=== PATIENT | female | born 1970 | race Caucasian/White ===

== ENCOUNTER 2018-05-17 17:13 | Emergency (ER) | payer OTHER ==
--- NOTE | 2018-05-17 17:30 | ED.PDOC ---
History of Present Illness - General Chief Complaint: ENT Problem Time Seen by Provider: 05/17/18 17:27 Source: patient, RN notes reviewed, Vital Signs reviewed Exam Limitations: no limitations Additional Information: 47 Y O HERE FOR EVALUATION OF SORE THROAT AND THROAT PAIN KERRY ON SWOLLOING SHE GETS STREP THORAT TWICE A YEAR USUALL TREATED WITH BACTRIM SHE IS ALLERGIC TO PCN - History of Present Illness Timing/Duration: 1 week Severity: moderate Improving Factors: nothing Worsening Factors: eating Associated Symptoms: cough Allergies/Adverse Reactions: Allergies Morphine Allergy (Verified 05/17/18 17:25) Penicillins Allergy (Verified 05/17/18 17:25) Home Medications: Ambulatory Orders Sulfa/Trimeth 800/160 (Ds) Tab [Bactrim DS Tab] 1 ea PO Q12HR #20 tab 05/17/18 Review of Systems - Review of Systems Constitutional: States: no symptoms reported EENTM: States: throat pain Respiratory: States: no symptoms reported Cardiology: States: no symptoms reported Gastrointestinal/Abdominal: States: no symptoms reported Genitourinary: States: no symptoms reported Musculoskeletal: States: no symptoms reported Skin: States: no symptoms reported Neurological: States: no symptoms reported Endocrine: States: no symptoms reported Hematologic/Lymphatic: States: no symptoms reported Family Medical History - Family History Mother Family History: No Known Physical Exam - Physical Exam General Appearance: Alert, Comfortable Eye Exam: bilateral normal Ears, Nose, Throat: hearing grossly normal, normal ENT inspection, pharyngeal erythema Neck: non-tender, full range of motion, supple, normal inspection Respiratory: chest non-tender, lungs clear, normal breath sounds, no respiratory distress Cardiovascular/Chest: normal peripheral pulses, regular rate, rhythm, no edema, no gallop, no JVD Back Exam: normal inspection, no CVA tenderness, no vertebral tenderness Extremity: normal range of motion, non-tender, normal inspection 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 Copy, Patient Portal Self Enrollment Instructions: DI for Ear Pain-Adult Diet: regular diet Prescriptions: Sulfa/Trimeth 800/160 (Ds) Tab [Bactrim DS Tab] 1 ea PO Q12HR #20 tab Home Medications: Ambulatory Orders Sulfa/Trimeth 800/160 (Ds) Tab [Bactrim DS Tab] 1 ea PO Q12HR #20 tab 05/17/18
[2018-05-17] MEDS ORDERED: fentaNYL CITRATE INJ 50 MCG/ML AMP IV ONE (17:31)
[2018-05-17] MEDS ORDERED: diazePAM 5 MG TAB PO ONE (17:33)
[2018-05-17] MEDS ORDERED: ORPHENADRINE CITRATE 30 MG/ML AMP IV ONE (17:33)
[2018-05-17 17:34] VITALS: TEMP 97.7; O2SAT 97
[2018-05-17 18:19] VITALS: BP 137/84
== END 2018-05-17 18:12 | disposition home or self-care (01) ==
LOC: ER 17:13
DX: J02.9 Acute pharyngitis, unspecified (principal); Z88.5 Allergy status to narcotic agent; Z88.0 Allergy status to penicillin

== ENCOUNTER 2018-05-20 07:03 | Emergency (ER) | payer OTHER ==
[2018-05-20 07:23] VITALS: TEMP 98.4
[2018-05-20] MEDS ORDERED: VANCOMYCIN HCL INJ 1,000 MG in SODIUM CHLORIDE 0.9% 250ML 250 ML IVPB ONE (07:24)
[2018-05-20] MEDS ORDERED: HYDROmorphone HCL INJ 2 MG/ML VIAL IV ONE (07:24)
[2018-05-20] MEDS ORDERED: ONDANSETRON INJ 4 MG/2 ML VIAL IV ONE (07:28)
--- NOTE | 2018-05-20 07:29 | ED.PDOC ---
History of Present Illness - General Chief Complaint: ENT Problem Time Seen by Provider: 05/20/18 07:22 Source: patient Exam Limitations: no limitations - History of Present Illness Initial Comments: patient comes in today with 4 day history of worsening sore throat and loss of voice. Patient states 4 days ago she was seen and given Bactrim for sore throat although strep swab at that time was negative. Since then it has progressively worsened to severe pain and inability to take anything by mouth including her chronic psychiatric medications or pain medications. Patient states she's been crushing up her antibiotics and taking it with his little fluid as possible as even drinking her saliva is causing excruciating pain. Patient states the last urination was a small amount late last night. Patient had some fever up to 99, no chills, but some malaise. Patient states she just feels horrible and has never had a throat infection this bad. 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 Patient otherwise is fairly healthy. 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 Patient also takes medication for bipolar disease and post rank stress disorder. Patient denies any tobacco, alcohol, or drug use. She has an allergy to penicillin and morphine but states other derivatives of morphine she's always been fine with including dialyzed and hydrocodone. Patient is able to communicate minimally with her voice being very muffled but is sitting up straight, not drooling, and no respiratory distress. Timing/Duration: other - 4 days Severity: severe EENT Location: throat Prearrival Treatment: prescription meds - bactrim and OTC Tylenol not helping Improving Factors: nothing Worsening Factors: other - unable to eat or drink because of pain, last urination yesterday Associated Symptoms: facial pain/swelling, fever Allergies/Adverse Reactions: Allergies Morphine Allergy (Verified 05/17/18 17:25) Penicillins Allergy (Verified 05/17/18 17:25) Home Medications: Ambulatory Orders Sulfa/Trimeth 800/160 (Ds) Tab [Bactrim DS Tab] 1 ea PO Q12HR #20 tab 05/17/18 Review of Systems - Review of Systems Constitutional: States: fever, malaise EENTM: States: throat pain, throat swelling Respiratory: States: no symptoms reported. Denies: cough, short of breath, wheezing Cardiology: States: no symptoms reported. Denies: chest pain, edema, palpitations Gastrointestinal/Abdominal: States: no symptoms reported. Denies: abdominal pain, diarrhea, nausea, vomiting Genitourinary: States: no symptoms reported Musculoskeletal: States: no symptoms reported Skin: States: no symptoms reported Neurological: States: no symptoms reported Past Medical History (General) - Patient Medical History Hx Seizures: No Hx Stroke: No Hx Congestive Heart Failure: No Hx Diabetes: No Hx Gastroesophageal Reflux: Yes Hx MRSA: Yes Hx Other PMH: Yes - Bipolar Disorder and Chronic back pain MRSA Source:: skin abscesses Surgical History: other - Hyst and Bladder suspension - Vaccination History Hx Tetanus, Diphtheria Vaccination: Yes Hx Influenza Vaccination: No Hx Pneumococcal Vaccination: No Immunizations Up to Date: No - Social History Hx Tobacco Use: No Hx Chewing Tobacco Use: No Hx Alcohol Use: No Hx Substance Use: No Hx Substance Use Treatment: No Hx Depression: No Feels Threatened In Home Enviroment: No Feels Threatened In a Relationship: No Hx Physical Abuse: No Hx Emotional Abuse: No - Female History Patient is a Female of Child Bearing Age (10 -59 yrs old): Yes Patient : Yes Family Medical History - Family History Mother Family History: No Known Physical Exam - Physical Exam General Appearance: Alert, Ill Appearing Eye Exam: bilateral normal Ear Exam: bilateral ear: auricle normal, canal normal, TM normal Nasal Exam: normal inspection Throat Exam: other - L [place] tonsil with erythema, swelling, and central white purulent lesion, no encroachment of the airway but some mild shifting of the uvula, dry mucous membranes Neck: full range of motion, supple, lymphadenopathy (R), other - TTP on the R anterior cervical lymphnodes with visable swelling of the soft tissue on the right, FROM of the neck is seen Cardiovascular/Respiratory: regular rate, rhythm, no M/R/G, normal peripheral pulses, no JVD, normal breath sounds, no respiratory distress Abdominal Exam: non-tender Neurologic: alert, oriented x 3 Progress - Progress Progress: patient is feeling better after IV fluid and IV pain medication. She is able to breathe in her respiratory status remained stable. We did talk to her about transfer as we do not have ENT surgeon available here for consultation although it is likely that IV antibiotics will help. Patient understands this and agrees to transfer. We contact regional transfer and she'll be transferred to [place] for direct admission under the care of the hospitalist with ENT consultation. 05/20/18 08:43 - Results/Orders Results/Orders: 05/20/18 07:24 Vancomycin HCl Inj 1,000 mg Sodium Chloride 0.9% 250Ml [NS 250ml] 250 ml IVPB ONCE Laboratory Results WBC 13.0 K/mm3 (4.8-10.8) H 05/20/18 07:20 RBC 4.67 M/mm3 (4.20-5.40) 05/20/18 07:20 Hgb 14.0 gm/dL (12.0-16.0) 05/20/18 07:20 Hct 41.6 % (36.0-47.0) 05/20/18 07:20 MCV 89.1 fl (81.0-99.0) 05/20/18 07:20 MCH 29.9 pg (27.0-31.0) 05/20/18 07:20 MCHC 33.6 g/dL (33.0-37.0) 05/20/18 07:20 RDW 13.5 % (11.5-14.5) 05/20/18 07:20 Plt Count 271 K/mm3 (130-400) 05/20/18 07:20 MPV 8.6 fl (7.40-10.4) 05/20/18 07:20 Absolute Neuts (auto) 10.50 K/uL (1.8-6.8) H 05/20/18 07:20 Absolute Lymphs (auto) 1.40 K/uL (1.0-3.4) 05/20/18 07:20 Absolute Monos (auto) 0.90 K/uL (0.2-0.8) H 05/20/18 07:20 Absolute Eos (auto) 0.10 K/uL (0.0-0.4) 05/20/18 07:20 Absolute Basos (auto) 0.10 K/uL (0.0-0.1) 05/20/18 07:20 Neutrophils % 80.9 % (42.0-78.0) H 05/20/18 07:20 Lymphocytes % 10.8 % (20.0-50.0) L 05/20/18 07:20 Monocytes % 7.3 % (2.0-9.0) 05/20/18 07:20 Eosinophils % 0.6 % (1.0-5.0) L 05/20/18 07:20 Basophils % 0.4 % (0.0-2.0) 05/20/18 07:20 Sodium 140 mmol/L (135-145) 05/20/18 07:20 Potassium 3.6 mmol/L (3.6-5.0) 05/20/18 07:20 Chloride 104 mmol/L (101-111) 05/20/18 07:20 Carbon Dioxide 26 mmol/L (21-31) 05/20/18 07:20 Anion Gap 13.6 (12-18) 05/20/18 07:20 BUN 10 mg/dL (7-18) 05/20/18 07:20 Creatinine 0.60 mg/dL (0.6-1.3) 05/20/18 07:20 BUN/Creatinine Ratio 16.7 (10-20) 05/20/18 07:20 Random Glucose 103 mg/dL (70-105) 05/20/18 07:20 Serum Osmolality 278.7 mOsm/L (275-295) 05/20/18 07:20 Lactic Acid 0.6 mmol/L (0.5-2.2) 05/20/18 07:20 Calcium 9.2 mg/dL (8.4-10.2) 05/20/18 07:20 Total Bilirubin 1.0 mg/dL (0.2-1.0) 05/20/18 07:20 AST 14 IU/L (10-42) 05/20/18 07:20 ALT 15 IU/L (10-60) 05/20/18 07:20 Alkaline Phosphatase 64 IU/L (42-121) 05/20/18 07:20 Serum Total Protein 7.9 gm/dL (6.4-8.2) 05/20/18 07:20 Albumin 4.5 g/dl (3.2-5.5) 05/20/18 07:20 Globulin 3.4 gm/dL (2.3-3.5) 05/20/18 07:20 Albumin/Globulin Ratio 1.3 (1.1-1.9) 05/20/18 07:20 Patient Name: DENISA ULLOA Gender: Female Date of : 1970 Referring Physician: BRANDI COFFEY Organization: [facility] Accession Number: [id number] Requested Date: May 20, 2018 07:24 Report Status: Final Requested Procedure: 1 Procedure Description: Soft Tissue Neck Modality: CT Findings Reporting MD: Kenneth Garcia MD: Not available Dictation Time: Operations Supervisor Chemical Cleaning: Not available Wholesale Account Executive Date: EXAM DESCRIPTION: Soft Tissue Neck CLINICAL HISTORY: 47 years Female, ? Peritonsillar abscess COMPARISON: None. TECHNIQUE: This exam was performed according to our departmental dose-optimization program, which includes automated exposure control, adjustment of the mA and/or kV according to patient size and/or use of iterative reconstruction technique. Noncontrast thin section imaging of the soft tissue neck with MPR reformatted images. FINDINGS: Overall evaluation is limited by a lack of IV contrast enhancement. In the right lateral pharyngeal sidewall a hypodense approximate 3.0 x 2.6 x 3.2 cm slightly ill-defined soft tissue mass partially effaces and displaces the right parapharyngeal fat plane and compresses the oral pharyngeal sidewall. A poorly delineated phlegmon or inflammatory process or an ill-defined abscess would be considerations. A well-defined liquefied center to confirm an abscess is not evident on this noncontrast study. Numerous small inflamed lymph nodes further laterally along the anterior margin of the sternocleidomastoid on the right and to a lesser extent on the left is present. Region of the larynx and subglottic airway and hypopharynx including the epiglottis is normal except for small amount of mass effect beginning at the level of the tip of the epiglottis in the right lateral pharyngeal sidewall. Submandibular glands and parotid glands are normal bilaterally. Thoracic inlet and superior mediastinum is normal on noncontrast imaging Tiny amount of mucosal thickening in the right maxillary sinus and antrum posteriorly and inferiorly is noted. Paranasal sinuses are otherwise essentially clear as are the petrous ridges and mastoid air cell systems. No definite bony destructive changes Radiology [employer] [address] [place] [address], [address] [place], [place] T [phone] [email or web address] - Report exported on May 20, 2018 08:42:04 -[id number] - Page 2 of 2 involving the mandibular or maxillary alveolar ridge noted. IMPRESSION: 1. Ill-defined hypodense soft tissue mass effect right lateral pharyngeal sidewall and tonsillar fossa that is incompletely delineated by the lack of IV contrast enhancement. The abnormality is 3.0 x 2.6 x 3.2 cm and most consistent with an enlarged inflamed tonsil with phlegmonous and/or abscess formation. Mild mass effect involving the pharyngeal sidewall and effacement of the adjacent parapharyngeal space laterally noted. 2. Numerous small almost conglomerate borderline enlarged lymph nodes in the jugulodigastric region along the anterior margin of the right sternocleidomastoid consistent with reactive lymphadenopathy. 3. Tiny amount of mucosal thickening right maxillary antrum - EKG/XRAY/CT CT Ordered: No CT Interpretation Call Back: No Departure - Departure Clinical Impression: Peritonsillar abscess Disposition: Transfer to Hospital Condition: Fair Departure Forms: ED Discharge - Pt. Copy, Patient Portal Self Enrollment Instructions: DI for Ear Pain-Adult Home Medications: Ambulatory Orders Sulfa/Trimeth 800/160 (Ds) Tab [Bactrim DS Tab] 1 ea PO Q12HR #20 tab 05/17/18 Transfer to Outside Facility - Transfer Information Accepting Facility: [facility] Reason for Transfer: required specialist not available
[2018-05-20] MEDS ORDERED: VANCOMYCIN HCL INJ 1,000 MG VIAL IVPB ONE (07:30)
[2018-05-20] MEDS ORDERED: SODIUM CHLORIDE 0.9% 250ML 250 ML ONE (07:31)
--- NOTE | 2018-05-20 08:14 | CT ---
EXAM DESCRIPTION: Soft Tissue Neck CLINICAL HISTORY: 47 years Female, ? Peritonsillar abscess COMPARISON: None. TECHNIQUE: This exam was performed according to our departmental dose-optimization program, which includes automated exposure control, adjustment of the mA and/or kV according to patient size and/or use of iterative reconstruction technique. Noncontrast thin section imaging of the soft tissue neck with MPR reformatted images. FINDINGS: Overall evaluation is limited by a lack of IV contrast enhancement. In the right lateral pharyngeal sidewall a hypodense approximate 3.0 x 2.6 x 3.2 cm slightly ill-defined soft tissue mass partially effaces and displaces the right parapharyngeal fat plane and compresses the oral pharyngeal sidewall. A poorly delineated phlegmon or inflammatory process or an ill-defined abscess would be considerations. A well-defined liquefied center to confirm an abscess is not evident on this noncontrast study. Numerous small inflamed lymph nodes further laterally along the anterior margin of the sternocleidomastoid on the right and to a lesser extent on the left is present. Region of the larynx and subglottic airway and hypopharynx including the epiglottis is normal except for small amount of mass effect beginning at the level of the tip of the epiglottis in the right lateral pharyngeal sidewall. Submandibular glands and parotid glands are normal bilaterally. Thoracic inlet and superior mediastinum is normal on noncontrast imaging Tiny amount of mucosal thickening in the right maxillary sinus and antrum posteriorly and inferiorly is noted. Paranasal sinuses are otherwise essentially clear as are the petrous ridges and mastoid air cell systems. No definite bony destructive changes involving the mandibular or maxillary alveolar ridge noted. IMPRESSION: 1. Ill-defined hypodense soft tissue mass effect right lateral pharyngeal sidewall and tonsillar fossa that is incompletely delineated by the lack of IV contrast enhancement. The abnormality is 3.0 x 2.6 x 3.2 cm and most consistent with an enlarged inflamed tonsil with phlegmonous and/or abscess formation. Mild mass effect involving the pharyngeal sidewall and effacement of the adjacent parapharyngeal space laterally noted. 2. Numerous small almost conglomerate borderline enlarged lymph nodes in the jugulodigastric region along the anterior margin of the right sternocleidomastoid consistent with reactive lymphadenopathy. 3. Tiny amount of mucosal thickening right maxillary antrum. Electronically signed by: Kenneth Garcia MD 05/20/2018 8:13 AM CDT
[2018-05-20 09:17] VITALS: O2SAT 99
[2018-05-20 10:03] VITALS: BP 157/76
== END 2018-05-20 09:30 | disposition short-term general hospital (02) ==
LOC: ER 07:03
DX: J36 Peritonsillar abscess (principal); F31.9 Bipolar disorder, unspecified; G89.29 Other chronic pain; K21.9 Gastro-esophageal reflux disease without esophagitis; Z86.14 Personal history of Methicillin resistant Staphylococcus aureus infection; Z88.5 Allergy status to narcotic agent; Z88.0 Allergy status to penicillin; Z79.899 Other long term (current) drug therapy; Z79.891 Long term (current) use of opiate analgesic
CPT/HCPCS: 36415; 70490; 80053; 83605; 85025; J1170; J2405; J3370; J7050

== ENCOUNTER 2018-06-11 10:15 | Emergency (ER) | payer OTHER ==
[2018-06-11 10:30] VITALS: TEMP 98
[2018-06-11] MEDS ORDERED: SODIUM CHLORIDE 0.9% (FLUSH) 10 ML SYG IV PRN (10:39)
[2018-06-11] MEDS ORDERED: ONDANSETRON INJ 4 MG/2 ML VIAL IV ONE (10:39)
--- NOTE | 2018-06-11 10:45 | ED.PDOC ---
History of Present Illness - General Chief Complaint: Cardiovascular Problem Stated Complaint: Palpitations Time Seen by Provider: 06/11/18 10:38 Source: patient Exam Limitations: no limitations - History of Present Illness Initial Comments: PT REPORTS ONSET OF PALPITATIONS DESCRIBED HER HEART SKIPPING A BEAT AND RACING SINCE THIS AM. PT REPORTS FREQUENT SIMILAR EPISODES THAT HAVE BEEN INTERMITTENT FOR THE PAST SEVERAL YEARS. PT STATES THAT SYMPTOMS ARE ASSOCIATED WITH ANXIETY, HEADACHE, NAUSEA, AND SOB. PT STATES THAT SHE HAS NOT BEEN EVALUATED BY A NURSING ASSISTANT FOR THIS PROBLEM. PT DENIES CHEST PAIN. Timing/Duration: intermittent Severity: moderate Activities at Onset: sleep Prior Chest Pain/Cardiac Workup: no prior cardiac workup Improving Factors: nothing Worsening Factors: nothing Nitro Today/Relief: no nitro taken today Aspirin Treatment Today: no aspirin today Associated Symptoms: headaches, nausea/vomiting, shortness of breath Allergies/Adverse Reactions: Allergies Morphine Allergy (Verified 05/17/18 17:25) Penicillins Allergy (Verified 05/17/18 17:25) Home Medications: Ambulatory Orders Sulfa/Trimeth 800/160 (Ds) Tab [Bactrim DS Tab] 1 ea PO Q12HR #20 tab 05/17/18 Ondansetron [Zofran Odt] 8 mg PO TID PRN #20 tab 06/11/18 Review of Systems - Review of Systems Constitutional: Denies: chills, fever EENTM: Denies: blurred vision, double vision Respiratory: States: short of breath. Denies: cough Cardiology: States: palpitations. Denies: chest pain, syncope Gastrointestinal/Abdominal: States: nausea. Denies: abdominal pain, diarrhea, vomiting Genitourinary: Denies: dysuria, frequency Musculoskeletal: Denies: joint pain, joint swelling Skin: Denies: dryness, lesions Neurological: States: headache, paresthesia - TO BILATERAL ARMS Endocrine: States: no symptoms reported Past Medical History (General) - Patient Medical History Hx Seizures: No Hx Stroke: No Hx Congestive Heart Failure: No Hx Diabetes: No Hx Gastroesophageal Reflux: Yes Hx MRSA: Yes Hx Other PMH: Yes - BIPOLAR, ANXIETY MRSA Source:: skin abscesses Other Surgeries:: HYSTERECTOMY, BLADDER RECONSTRUCTION - Vaccination History Hx Tetanus, Diphtheria Vaccination: Yes Hx Influenza Vaccination: No Hx Pneumococcal Vaccination: No - Social History Hx Tobacco Use: No Hx Chewing Tobacco Use: No Hx Alcohol Use: Yes - WINE DAILY Hx Substance Use: Yes - HISTORY OF METHAMPHETAMINE ABUSE 6 YRS AGO Hx Substance Use Treatment: No Hx Depression: No Hx Physical Abuse: No Hx Emotional Abuse: No - Female History Patient : Yes Family Medical History - Family History Mother Family History: No Known Physical Exam - Physical Exam General Appearance: Alert, Anxious, Obese, Well Developed, Well Groomed, Well Hydrated Eyes, Ears, Nose, Throat Exam: normal ENT inspection Neck: supple, normal inspection Respiratory: lungs clear, normal breath sounds, no respiratory distress Cardiovascular/Chest: regular rate, rhythm, no edema, no murmur Gastrointestinal/Abdominal: non tender, soft Extremity: non-tender, normal inspection, no pedal edema Neurologic: alert, oriented x 3 Skin Exam: normal color, warm/dry Progress - Progress Progress: 06/11/18 13:06 PT RESTING COMFORTABLY ON RE-EVAL AFTER IV ZOFRAN, TORADOL, ATIVAN, AND FLUIDS. LABS AND DIAGNOSTIC STUDIES DISCUSSED. PT REVEALED THAT SHE HAS BEEN WEENING HERSELF OFF OF HYDROCODONE SINCE YESTERDAY. I STRESSED THE IMPORTANCE OF CONSULTING HER PCP BEFORE DOING SO. I ALSO RECOMMENDED FOLLOW UP WITH A NURSING ASSISTANT FOR CARDIAC EVAL. - Results/Orders Results/Orders: Laboratory Tests 06/11/18 06/11/18 10:30 10:30 WBC 7.7 RBC 4.51 Hgb 13.7 Hct 40.2 MCV 89.2 MCH 30.3 MCHC 34.0 RDW 14.5 Plt Count 319 MPV 7.6 Absolute Neuts (auto) 5.00 Absolute Lymphs (auto) 1.80 Absolute Monos (auto) 0.60 Absolute Eos (auto) 0.30 Absolute Basos (auto) 0.00 Neutrophils % 64.4 Lymphocytes % 23.7 Monocytes % 8.3 Eosinophils % 3.4 Basophils % 0.2 PT 9.2 INR 0.92 PTT (SP) 28.3 D-Dimer, Quantitative 0.56 H* Sodium 139 Potassium 4.1 Chloride 106 Carbon Dioxide 27 Anion Gap 10.1 L BUN 12 Creatinine 0.51 L BUN/Creatinine Ratio 23.5 H Random Glucose 99 Serum Osmolality 277.3 Calcium 8.6 Magnesium 1.9 Total Bilirubin 0.8 Direct Bilirubin 0.1 Indirect Bilirubin 0.7 AST 71 H ALT 120 H Alkaline Phosphatase 62 Creatine Kinase 33 CK-MB (CK-2) 1.4 Troponin I < 0.02 Serum Total Protein 7.0 Albumin 4.0 - EKG/XRAY/CT EKG: Sinus - @90 WITH SINUS ARRHYTHMIA, NL INTERVALS, NL AXIS, no ST T wave changes XRAY: chest - NO OLD EKG FOR COMPARISON Departure - Departure Clinical Impression: Intermittent palpitations, Acute narcotic withdrawal, Nausea, Headache, Volume depletion Time of Disposition: 13:15 Disposition: Discharge to Home or Self Care Condition: Good Departure Forms: ED Discharge - Pt. Copy, Patient Portal Self Enrollment Instructions: Prescription Drug Withdrawal (DC), Palpitations (DC) Referrals: Gino Walker MD [Primary Care Provider] - 1-5 Days Prescriptions: Ondansetron [Zofran Odt] 8 mg PO TID PRN #20 tab PRN Reason: Nausea/Vomiting Home Medications: Ambulatory Orders Sulfa/Trimeth 800/160 (Ds) Tab [Bactrim DS Tab] 1 ea PO Q12HR #20 tab 05/17/18 Ondansetron [Zofran Odt] 8 mg PO TID PRN #20 tab 06/11/18
--- NOTE | 2018-06-11 10:57 | RAD ---
EXAM DESCRIPTION: Chest,1 View CLINICAL HISTORY: palpitations COMPARISON: None Available. TECHNIQUE: Single upright portable frontal view of the chest. FINDINGS: Cardiomediastinal silhouette and pulmonary vascularity are within normal limits. Lungs are clear without focal consolidations. Bilateral costophrenic angles are sharp. No pneumothorax. Visualized osseous structures show no destructive lesions. IMPRESSION: No radiographic evidence for acute cardiopulmonary process. Electronically signed by: Gm Sepulveda MD 06/11/2018 10:55 AM CDT
[2018-06-11] MEDS ORDERED: SODIUM CHLORIDE 0.9% 1000ML 1,000 ML IVS ONE (11:43)
[2018-06-11] MEDS ORDERED: KETOROLAC TROMETHAMINE INJ 30 MG/ML VIAL IV ONE (11:44)
[2018-06-11 13:27] VITALS: BP 144/86
[2018-06-11 13:46] VITALS: O2SAT 100
== END 2018-06-11 13:43 | disposition home or self-care (01) ==
LOC: ER 10:15
DX: R00.2 Palpitations (principal); F11.23 Opioid dependence with withdrawal; E86.9 Volume depletion, unspecified; R11.0 Nausea; R51 Headache; R06.02 Shortness of breath; K21.9 Gastro-esophageal reflux disease without esophagitis; F41.9 Anxiety disorder, unspecified; F31.9 Bipolar disorder, unspecified; F15.11 Other stimulant abuse, in remission; Z88.5 Allergy status to narcotic agent; Z88.0 Allergy status to penicillin
CPT/HCPCS: 36415; 71045; 80048; 80076; 80307; 82550; 82553; 84484; 85025; 85379; 85610; 85730; 93005; 94760; J1885; J2060; J2405; J7030

== ENCOUNTER 2018-08-20 08:45 | Emergency (ER) | payer OTHER ==
--- NOTE | 2018-08-20 09:28 | RAD ---
Study: Frontal and Lateral Views of the Chest. Indication: fall with parasternal rib pain Comparison: June 11, 2018. Impression: Heart size normal. Lungs clear. No acute osseous abnormality. Electronically signed by: Haider Cormier MD 08/20/2018 9:26 AM [facility]
--- NOTE | 2018-08-20 09:49 | ED.PDOC ---
History of Present Illness - General Chief Complaint: Trauma Stated Complaint: fell and landed on chest,rib pain Time Seen by Provider: 08/20/18 08:55 Source: patient Exam Limitations: no limitations - History of Present Illness Initial Comments: the patient is a 47-year-old female presenting to the emergency room secondary to pain to the right parasternal region that started about 36 hours ago after a accidental fall forward. The patient has pain with taking deep breaths and with movement of the right arm. She feels a slight popping with movement. No real shortness of breath. No cough. No syncope. No chest pain elsewhere. She does get occasional spasms in that area. She is tender to palpation over the area. There is a small visible bruise. I feel no crepitus. Lungs are clear. No other injuries. Timing/Duration: 24 hours Severity: moderate Improving Factors: nothing Worsening Factors: movement Associated Symptoms: denies symptoms Allergies/Adverse Reactions: Allergies Morphine Allergy (Verified 05/17/18 17:25) Penicillins Allergy (Verified 05/17/18 17:25) Home Medications: Ambulatory Orders Sulfa/Trimeth 800/160 (Ds) Tab [Bactrim DS Tab] 1 ea PO Q12HR #20 tab 05/17/18 Ondansetron [Zofran Odt] 8 mg PO TID PRN #20 tab 06/11/18 Cyclobenzaprine HCl [Flexeril] 5 mg PO TID PRN #30 tab 08/20/18 predniSONE [Prednisone] 20 mg PO DAILY #3 tab 08/20/18 Review of Systems - Review of Systems Constitutional: States: no symptoms reported EENTM: States: no symptoms reported Respiratory: States: no symptoms reported Cardiology: States: chest pain Gastrointestinal/Abdominal: States: no symptoms reported Genitourinary: States: no symptoms reported Musculoskeletal: States: see HPI Skin: States: no symptoms reported Neurological: States: no symptoms reported Endocrine: States: no symptoms reported All other Systems: No Change from Baseline Past Medical History (General) - Patient Medical History Hx Seizures: No Hx Stroke: No Hx Congestive Heart Failure: No Hx Diabetes: No Hx Gastroesophageal Reflux: Yes Hx MRSA: Yes MRSA Source:: Wound Surgical History: tonsillectomy - Vaccination History Hx Tetanus, Diphtheria Vaccination: Yes Hx Influenza Vaccination: No Hx Pneumococcal Vaccination: No - Social History Hx Tobacco Use: No - Uses e-cigs occasionally Hx Chewing Tobacco Use: No Hx Alcohol Use: Yes - WINE DAILY Hx Substance Use: Yes - HISTORY OF METHAMPHETAMINE ABUSE 6 YRS AGO Hx Substance Use Treatment: No Hx Depression: No Hx Physical Abuse: No Hx Emotional Abuse: No Hx Suspected Abuse: No - Female History Patient : Yes Family Medical History - Family History Mother Family History: No Known Physical Exam - Physical Exam General Appearance: Alert, No apparent distress Eye Exam: bilateral normal Ears, Nose, Throat: hearing grossly normal, normal pharynx Neck: full range of motion, supple Respiratory: lungs clear, normal breath sounds, no respiratory distress, no accessory muscle use, other - chest wall tenderness to palpation as stated above Cardiovascular/Chest: normal peripheral pulses, regular rate, rhythm, no edema Peripheral Pulses: radial,right: 2+, radial,left: 2+ Gastrointestinal/Abdominal: non tender, soft Rectal Exam: deferred Back Exam: normal inspection Extremity: normal range of motion, non-tender, normal inspection, no pedal edema, normal capillary refill 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 She already has opiate pain medications for her chronic pain. I'm going to place the patient on 3 days of oral prednisone and she will also be written for Flexeril as a muscle relaxer for as needed use. she does need to take slow and deep breaths. ER warnings were given for any significant changes. Keep routine follow-up with primary care doctor otherwise. - Results/Orders Results/Orders: two-view chest x-ray shows no evidence of any fracture pulmonary infiltrate or pneumothorax. Departure - Departure Clinical Impression: Costochondritis, acute Disposition: Discharge to Home or Self Care Condition: Fair Departure Forms: ED Discharge - Pt. Copy, Patient Portal Self Enrollment Diet: regular diet Activity: increase activity as tolerated Referrals: Gino Walker MD [Primary Care Provider] - 1-2 Weeks Prescriptions: Cyclobenzaprine HCl [Flexeril] 5 mg PO TID PRN #30 tab PRN Reason: Muscle Spasms predniSONE [Prednisone] 20 mg PO DAILY #3 tab Home Medications: Ambulatory Orders Sulfa/Trimeth 800/160 (Ds) Tab [Bactrim DS Tab] 1 ea PO Q12HR #20 tab 05/17/18 Ondansetron [Zofran Odt] 8 mg PO TID PRN #20 tab 06/11/18 Cyclobenzaprine HCl [Flexeril] 5 mg PO TID PRN #30 tab 08/20/18 predniSONE [Prednisone] 20 mg PO DAILY #3 tab 08/20/18 Additional Instructions: the patient is a 47-year-old female presenting to the emergency room secondary to costochondritis of the right side due to a fall that occurred a couple days ago. She already has opiate pain medications for her chronic pain. I'm going to place the patient on 3 days of oral prednisone and she will also be written for Flexeril as a muscle relaxer for as needed use. she does need to take slow and deep breaths. ER warnings were given for any significant changes. Keep routine follow-up with primary care doctor otherwise.
[2018-08-20 10:47] VITALS: BP 140/96; TEMP 99; O2SAT 98
== END 2018-08-20 09:58 | disposition home or self-care (01) ==
LOC: ER 08:45
DX: M94.0 Chondrocostal junction syndrome [Tietze] (principal); G89.29 Other chronic pain; K21.9 Gastro-esophageal reflux disease without esophagitis; Z79.891 Long term (current) use of opiate analgesic; Z72.0 Tobacco use; Z88.5 Allergy status to narcotic agent; Z88.0 Allergy status to penicillin

== ENCOUNTER 2018-11-22 13:38 | Emergency (ER) | payer OTHER ==
[2018-11-22] MEDS ORDERED: ALUM & MAG HYDROX-SIMETHICONE 30 ML, LIDOCAINE VISCOUS 2% 15 ML PO ONE ×2 (13:54)
[2018-11-22 14:10] VITALS: TEMP 98.6
[2018-11-22] MEDS ORDERED: LIDOCAINE HCL 2% (MOUTH-THROAT) 15 ML UD ONE (14:13)
[2018-11-22] MEDS ORDERED: ALUM & MAG HYDROX-SIMETHICONE 30 ML UD ONE (14:13)
[2018-11-22] MEDS ORDERED: ALUMINUM & MAGNESIUM HYDROXIDE 30 ML UD ONE (14:14)
--- NOTE | 2018-11-22 14:38 | RAD ---
EXAM DESCRIPTION: Chest,2 Views CLINICAL HISTORY: near syncope COMPARISON: Previous study of August 20, 2018 TECHNIQUE: PA/lateral FINDINGS: There is no acute appearing cardiac or pulmonary abnormality. Heart size is normal with normal pulmonary vascularity. No pleural effusion or pneumothorax. Lungs are clear with no consolidating infiltrate. Lateral view shows intact sternum and T-spine. IMPRESSION: No acute process is identified in the chest. Electronically signed by: Miki Jimenez MD 11/22/2018 2:35 PM CDT
[2018-11-22 15:12] VITALS: BP 170/82
--- NOTE | 2018-11-22 15:15 | ED.PDOC ---
History of Present Illness - General Chief Complaint: General Stated Complaint: passed out Time Seen by Provider: 11/22/18 13:42 Source: patient Exam Limitations: no limitations - History of Present Illness Initial Comments: the patient is a 48-year-old female presenting to the emergency room secondary to a near syncopal episode while at home that was preceded and fol lowed by gastritis symptoms and acid washing back up in the back of her throat. She has had uncontrolled gastritis and reflux for quite some time. She has also had a history of some PVCs and PACs and has taken herself off of her beta donna. She felt like she was having some palpitations just before the event as well. She has been followed with Dr. Toure and has had extensive cardiac monitoring done. She was placed on propranolol by him for this which she has discontinued herself. Timing/Duration: momentarily Severity: moderate Improving Factors: nothing Worsening Factors: nothing Associated Symptoms: denies symptoms Allergies/Adverse Reactions: Allergies Morphine Allergy (Verified 11/22/18 14:04) Penicillins Allergy (Verified 11/22/18 14:04) Home Medications: Ambulatory Orders Famotidine [Pepcid Tab] 20 mg PO BID #60 tab 11/22/18 Review of Systems - Review of Systems Constitutional: States: no symptoms reported EENTM: States: no symptoms reported Respiratory: States: no symptoms reported Cardiology: States: palpitations Gastrointestinal/Abdominal: States: abdominal pain, nausea Genitourinary: States: no symptoms reported Musculoskeletal: States: no symptoms reported Skin: States: no symptoms reported Neurological: States: anxiety Endocrine: States: no symptoms reported All other Systems: No Change from Baseline Past Medical History (General) - Patient Medical History Hx Seizures: No Hx Stroke: No Hx Congestive Heart Failure: No Hx Diabetes: No Hx Gastroesophageal Reflux: Yes Hx Cancer: No Hx Hepatitis C: No Hx MRSA: Yes MRSA Source:: Wound Surgical History: Hysterectomy - Vaccination History Hx Tetanus, Diphtheria Vaccination: No Hx Influenza Vaccination: No Hx Pneumococcal Vaccination: No Immunizations Up to Date: No - Social History Hx Tobacco Use: No Hx Chewing Tobacco Use: No Hx Alcohol Use: Yes - occ Hx Substance Use: No Hx Substance Use Treatment: No Hx Depression: Yes - ptsd Hx Physical Abuse: No Hx Emotional Abuse: No Hx Suspected Abuse: No - Female History Patient is a Female of Child Bearing Age (10 -59 yrs old): No Patient : Yes Family Medical History - Family History Mother Family History: No Known Physical Exam - Physical Exam General Appearance: Alert, Comfortable, No apparent distress Eye Exam: bilateral normal Ears, Nose, Throat: hearing grossly normal, normal ENT inspection, normal pharynx Neck: full range of motion, supple Respiratory: lungs clear, normal breath sounds, no respiratory distress, no accessory muscle use Cardiovascular/Chest: normal peripheral pulses, regular rate, rhythm, no edema Peripheral Pulses: radial,right: 2+, radial,left: 2+, dorsalis pedis,right: 2+, dorsalis pedis,left: 2+ Gastrointestinal/Abdominal: other - mild epigastric discomfort palpation. Obese. 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 EKG shows normal sinus rhythm at 89 bpm. Oral on prolonged QT interval. Normal axis. Normal R-wave progression. No definitive ST segment or T-wave changes indicative of ischemia. Progress - Progress Progress: 11/22/18 15:16 the patient's 48-year-old female presenting to emergency room secondary to a near syncopal episode. The patient does have a history of some mild arrhythmia but we did not notice any arrhythmia here on monitoring today. I would encourage her to go back on her beta donna medication that her credit adjuster has put her on. It is possible that the palpitations that she is feeling are actually esophageal irritation due to her uncontrolled gastritis and reflux issues. I am going to place the patient on Pepcid twice daily. She needs to obtain some liquid Maalox to keep with her as well. She needs to keep herself well hydrated. Laboratory workup and x-ray are reassuring here today. Keep routine follow up with primary care doctor otherwise. - Results/Orders Results/Orders: chest x-ray appears benign. Laboratory Tests 11/22/18 11/22/18 11/22/18 13:54 14:07 14:07 WBC 9.2 RBC 4.32 Hgb 13.3 Hct 39.4 MCV 91.2 MCH 30.7 MCHC 33.7 RDW 14.6 H Plt Count 315 MPV 8.2 Absolute Neuts (auto) 6.60 Absolute Lymphs (auto) 1.70 Absolute Monos (auto) 0.70 Absolute Eos (auto) 0.20 Absolute Basos (auto) 0.10 Neutrophils % 71.4 Lymphocytes % 18.2 L Monocytes % 7.5 Eosinophils % 2.2 Basophils % 0.7 Sodium 139 Potassium 3.6 Chloride 106 Carbon Dioxide 24 Anion Gap 12.6 BUN 12 Creatinine 0.60 BUN/Creatinine Ratio 20.0 Random Glucose 93 Serum Osmolality 277.0 Calcium 8.4 Magnesium 1.8 Total Bilirubin 0.7 AST 15 ALT 13 Alkaline Phosphatase 57 Creatine Kinase 61 CK-MB (CK-2) 1.5 CK-MB (CK-2) % Not Reportable Troponin I < 0.02 B-Natriuretic Peptide 37.9 Serum Total Protein 6.8 Albumin 3.8 Globulin 3.0 Albumin/Globulin Ratio 1.3 TSH 1.69 Urine Color Urine Appearance Urine pH Ur Specific Fitzhugh Urine Protein Urine Glucose (UA) Urine Ketones Urine Blood Urine Nitrite Urine Bilirubin Urine Urobilinogen Ur Leukocyte Esterase Urine RBC Urine WBC Ur Epithelial Cells Urine Bacteria Urine HCG, Qual Negative 11/22/18 14:27 WBC RBC Hgb Hct MCV MCH MCHC RDW Plt Count MPV Absolute Neuts (auto) Absolute Lymphs (auto) Absolute Monos (auto) Absolute Eos (auto) Absolute Basos (auto) Neutrophils % Lymphocytes % Monocytes % Eosinophils % Basophils % Sodium Potassium Chloride Carbon Dioxide Anion Gap BUN Creatinine BUN/Creatinine Ratio Random Glucose Serum Osmolality Calcium Magnesium Total Bilirubin AST ALT Alkaline Phosphatase Creatine Kinase CK-MB (CK-2) CK-MB (CK-2) % Troponin I B-Natriuretic Peptide Serum Total Protein Albumin Globulin Albumin/Globulin Ratio TSH Urine Color Yellow Urine Appearance Clear Urine pH 7.0 Ur Specific Fitzhugh 1.025 Urine Protein Trace Urine Glucose (UA) Negative Urine Ketones Negative Urine Blood Trace-intact H Urine Nitrite Negative Urine Bilirubin Negative Urine Urobilinogen 0.2 Ur Leukocyte Esterase Trace H Urine RBC 0-1 Urine WBC 0-1 Ur Epithelial Cells 3-5 Urine Bacteria Rare Urine HCG, Qual - EKG/XRAY/CT CT Ordered: Yes Departure - Departure Clinical Impression: Near syncope, Reflux esophagitis Disposition: Discharge to Home or Self Care Condition: Fair Departure Forms: ED Discharge - Pt. Copy, Patient Portal Self Enrollment Instructions: Acid Reflux (Gastroesophageal Reflux Disease), Adult (DC) Diet: bland diet Activity: increase activity as tolerated Referrals: Gino Walker MD [Primary Care Provider] - 1-2 Weeks Prescriptions: Famotidine [Pepcid Tab] 20 mg PO BID #60 tab Home Medications: Ambulatory Orders Famotidine [Pepcid Tab] 20 mg PO BID #60 tab 11/22/18 Additional Instructions: the patient's 48-year-old female presenting to emergency room secondary to a near syncopal episode. The patient does have a history of some mild arrhythmia but we did not notice any arrhythmia here on monitoring today. I would encourage her to go back on her beta donna medication that her credit adjuster has put her on. It is possible that the palpitations that she is feeling are actually esophageal irritation due to her uncontrolled gastritis and reflux issues. I am going to place the patient on Pepcid twice daily. She needs to obtain some liquid Maalox to keep with her as well. She needs to keep herself well hydrated. Laboratory workup and x-ray are reassuring here today. Keep routine follow up with primary care doctor otherwise.
[2018-11-22 15:29] VITALS: O2SAT 97
== END 2018-11-22 15:29 | disposition home or self-care (01) ==
LOC: ER 13:38
DX: R55 Syncope and collapse (principal); K21.0 Gastro-esophageal reflux disease with esophagitis; F43.10 Post-traumatic stress disorder, unspecified; Z88.5 Allergy status to narcotic agent; Z88.0 Allergy status to penicillin

== ENCOUNTER → 2018-11-27 | Outpatient (CLI) | payer OTHER ==
--- NOTE | 2018-11-27 16:32 | US ---
EXAM DESCRIPTION: Venous,Lower Extremity LT: ULTRASOUND. CLINICAL HISTORY: SWELLING COMPARISON: None Available. TECHNIQUE: Baker-scale and doppler sonographic evaluation of the deep venous system of the left lower extremity. FINDINGS: Doppler evaluation shows normal color flow and normal phasicity and augmentation of the left common femoral vein, femoral vein, popliteal vein, greater saphenous vein, peroneal, and posterior tibial vein. The left lower extremity deep veins were completely compressible; normal occlusion with transducer pressure. Baker-scale survey showed no echogenic thrombus within these veins. IMPRESSION: 1. Duplex ultrasound evaluation of the left lower extremity deep venous system showing no evidence of thrombosis. Electronically signed by: Keanu Benz MD 11/27/2018 4:29 PM CDT
== END ==
LOC: US 10:56
PROVIDERS: ATTEND Nurse Practitioner Family
DX: M79.652 Pain in left thigh (principal); R60.0 Localized edema; Z84.89 Family history of other specified conditions

== ENCOUNTER → 2019-04-22 | Outpatient (CLI) | payer OTHER ==
--- NOTE | 2019-04-22 17:44 | RAD ---
EXAM DESCRIPTION: Sacroiliac Joints CLINICAL HISTORY: SACRAL ARTHRITIS COMPARISON: None. TECHNIQUE: 3 views FINDINGS: Mild degenerative changes observed in the right sacroiliac joint. The left sacroiliac joint is normal. Mild degenerative changes are also observed in the lower lumbar spine. IMPRESSION: Mild right SI joint arthritis is observed. Electronically signed by: Gm Delgado MD 04/22/2019 5:42 PM CDT
== END ==
LOC: RAD 12:05
PROVIDERS: ATTEND Nurse Practitioner Family
DX: M46.98 Unspecified inflammatory spondylopathy, sacral and sacrococcygeal region (principal)

== ENCOUNTER → 2019-05-08 | Outpatient (CLI) | payer OTHER ==
--- NOTE | 2019-05-14 19:51 | MAM ---
EXAM DESCRIPTION: 3D Screening BILATERAL : Digital Mammography. CLINICAL HISTORY: 48 years Female ANNUAL SCREENING COMPARISON: Baseline study at this facility.. Request is been made for prior examinations. TECHNIQUE: Bilateral CC and MLO projection full-field images, digital tomosynthesis mammographic technique Bilateral digital 2-D full-field MLO images. CAD not available for tomosynthesis or 2-D images. FINDINGS: The breast parenchymal density pattern is: Heterogeneously dense breast tissue, which may obscure small masses. No skin thickening or nipple retraction. Oval-shaped mass density versus focal asymmetry in the middle third of the left breast at the 12:30 position, 10 cm from the nipple. No new focal, stellate mass or density, focal asymmetry , and no suspicious microcalcifications right breast. IMPRESSION: BI-RADS CATEGORY: 0 - INCOMPLETE- Need prior mammograms for comparison. FOLLOW-UP: Comparison with prior examination(s) when available. Written communication explaining the results and follow-up will be mailed to the patient and referring care provider. Electronically signed by: Keanu Benz MD 05/14/2019 7:50 PM CDT
== END ==
LOC: MAMMO 09:00
PROVIDERS: ATTEND Nurse Practitioner Family
DX: Z12.31 Encounter for screening mammogram for malignant neoplasm of breast (principal)

== ENCOUNTER 2019-10-09 17:41 | Emergency (ER) | payer OTHER ==
[2019-10-09] MEDS ORDERED: DEXAMETHASONE INJ 10 MG/ML VIAL IM ONE (18:14)
[2019-10-09 18:50] VITALS: BP 130/97; TEMP 98.8; O2SAT 94
--- NOTE | 2019-10-09 19:21 | ED.PDOC ---
History of Present Illness - General Chief Complaint: General Stated Complaint: L eye, L ear swelling, pain and pressure Time Seen by Provider: 10/09/19 18:14 Source: patient, RN notes reviewed, Vital Signs reviewed Exam Limitations: no limitations Additional Information: Patient was seen here several months ago with severe sore throat and was diagnosed with peritonsillar abscess. She was transferred to [facility] and reportedly had a tonsillectomy. Infection at that time was difficult to control and required multiple antibiotics. She states the pain today is similar to the pain she had then. She saw her primary care doctor in the office today, had a throat culture performed. She was started on clindamycin 2 days ago and reports no improvement in the interim. Sent to the emergency room for concern for recurrent peritonsillar abscess. She denies any difficulty swallowing, fever. She denies sore throat at this time, but reports submandibular pain radiating to the left ear. No dental pain. She reports sensation of left facial swelling - History of Present Illness Timing/Duration: other - 2 to 3 days Severity: moderate Improving Factors: nothing Worsening Factors: nothing Associated Symptoms: other - left ear pain, left jaw pain Allergies/Adverse Reactions: Allergies Morphine Allergy (Verified 11/22/18 14:04) Penicillins Allergy (Verified 11/22/18 14:04) Home Medications: Ambulatory Orders Famotidine [Pepcid Tab] 20 mg PO BID #60 tab 11/22/18 Acetamin W/Cod #3 Tab [Tylenol w/CODEINE #3] 1 - 2 tablet PO Q6HR #20 tab 10/09/19 Cefdinir [Omnicef] 300 mg PO BID 10 Days #20 cap 10/09/19 Ibuprofen [Motrin] 400 mg PO Q6HR #20 tab 10/09/19 Review of Systems - Review of Systems Constitutional: Denies: chills, fever EENTM: States: ear pain - Left ear, mouth pain. Denies: eye pain, ear discharge, nose congestion, throat pain, throat swelling Respiratory: Denies: cough, short of breath Cardiology: Denies: chest pain, edema Gastrointestinal/Abdominal: Denies: diarrhea, nausea, vomiting Genitourinary: Denies: dysuria, hematuria Musculoskeletal: Denies: joint pain, joint swelling, muscle stiffness, neck pain Skin: Denies: lesions, rash Neurological: Denies: headache, weakness All other Systems: Reviewed and Negative Past Medical History (General) - Patient Medical History Hx Seizures: No Hx Stroke: No Hx of COPD: No Hx Cardiac Disorders: Yes - SVT Hx Congestive Heart Failure: No Hx Hypertension: No Hx Diabetes: No Hx Gastroesophageal Reflux: Yes Hx Cancer: No Hx Hepatitis C: No Hx MRSA: Yes MRSA Source:: Wound Surgical History: tonsillectomy, Hysterectomy, other - Vaccination History Hx Tetanus, Diphtheria Vaccination: Yes Hx Influenza Vaccination: No Hx Pneumococcal Vaccination: No - Social History Hx Tobacco Use: Yes Hx Chewing Tobacco Use: No Hx Alcohol Use: No Hx Substance Use: No Hx Substance Use Treatment: No Hx Depression: No Hx Physical Abuse: No Hx Emotional Abuse: No Hx Suspected Abuse: No - Female History Patient is a Female of Child Bearing Age (10 -59 yrs old): Yes Patient : No - Hysterectomy Family Medical History - Family History Mother Family History: No Known Physical Exam - Physical Exam General Appearance: Alert, Comfortable, No apparent distress Ears, Nose, Throat: hearing grossly normal, normal pharynx, abnormal TM (L) - Erythematous, bulging, loss of light reflex, other - Uvula is midline. No peritonsillar abscess noted. She has no dental/gingival swelling or erythema. There is no obvious facial swelling. She has tenderness the left submandibular nodes, no significant lymph swelling or evidence of lymphadenitis. Her voice is normal. She is tolerating secretions. Neck: non-tender, full range of motion Respiratory: lungs clear, normal breath sounds, no respiratory distress Cardiovascular/Chest: regular rate, rhythm, no edema, no murmur Gastrointestinal/Abdominal: non tender, soft Back Exam: normal inspection, no CVA tenderness Neurologic: alert, oriented x 3 Skin Exam: normal color, warm/dry, rash Lymphatic: other - Tender left submandibular lymph node without significant swelling or lymphadenitis Progress - Progress Progress: 10/09/19 19:24 Late entry. 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 Voice is normal, tolerating secretions. Vital signs reassuring. She is afebrile. She is currently on clindamycin she states she has history of difficult to treat throat infections, developed a peritonsillar abscess a few months ago that requ ired a tonsillectomy. She states the symptoms are similar today. My suspicion for life-threatening oropharyngeal infection is very low at this time. We will add Omnicef, dexamethasone, pain control to the regimen. Recommended follow-up with PCP on Saturday as scheduled to review culture results. Strict warnings given to return the emergency room for fever, voice changes, inability to swallow, fevers, worsening pain, or any other concerns Departure - Departure Clinical Impression: Cervical adenopathy Otitis media Qualifiers: Otitis media type: serous Chronicity: acute Laterality: left Recurrence: non- recurrent Qualified Code(s): H65.02 - Acute serous otitis media, left ear Disposition: Discharge to Home or Self Care Condition: Good Health Concerns: Return to the emergency room for fever, worsening pain, difficulty swallowing, changes in voice, or other concerns. Follow-up with PCP in 3 days to follow-up on culture results and for recheck. Departure Forms: ED Discharge - Pt. Copy, Patient Portal Self Enrollment Instructions: Ear Infections (Otitis Media) (DC) Referrals: Gino Walker MD [Primary Care Provider] - 1-2 Weeks Prescriptions: Acetamin W/Cod #3 Tab [Tylenol w/CODEINE #3] 1 - 2 tablet PO Q6HR #20 tab Ibuprofen [Motrin] 400 mg PO Q6HR #20 tab Cefdinir [Omnicef] 300 mg PO BID 10 Days #20 cap Home Medications: Ambulatory Orders Famotidine [Pepcid Tab] 20 mg PO BID #60 tab 11/22/18 Acetamin W/Cod #3 Tab [Tylenol w/CODEINE #3] 1 - 2 tablet PO Q6HR #20 tab 10/09/19 Cefdinir [Omnicef] 300 mg PO BID 10 Days #20 cap 10/09/19 Ibuprofen [Motrin] 400 mg PO Q6HR #20 tab 10/09/19
== END 2019-10-09 18:47 | disposition home or self-care (01) ==
LOC: ER 17:41
DX: H65.02 Acute serous otitis media, left ear (principal); R59.0 Localized enlarged lymph nodes; R68.84 Jaw pain; K21.9 Gastro-esophageal reflux disease without esophagitis; Z98.890 Other specified postprocedural states; Z88.5 Allergy status to narcotic agent; Z88.0 Allergy status to penicillin; Z87.891 Personal history of nicotine dependence

== ENCOUNTER 2019-12-24 15:55 | Emergency (ER) | payer OTHER ==
--- NOTE | 2019-12-24 16:24 | ED.PDOC ---
History of Present Illness - General Chief Complaint: Trauma Time Seen by Provider: 12/24/19 16:19 Source: patient, RN notes reviewed, Vital Signs reviewed Exam Limitations: no limitations - History of Present Illness Initial Comments: This is a 49-year-old female with history of prior surgery/ORIF on the right ankle presenting after she fell down a few stairs today. She states she was walking up the stairs and the handrail broke off, she lost her balance and fell twisting her right ankle and landing on her left wrist. She states she did hit her head lightly, no LOC, no headache. She does not take any blood thinners. There were no preceding symptoms. No recent illness/sick contacts. Allergies/Adverse Reactions: Allergies Morphine Allergy (Verified 12/24/19 16:31) Penicillins Allergy (Verified 12/24/19 16:31) Home Medications: Ambulatory Orders Lurasidone HCl [Latuda] 40 mg PO DAILY 11/16/19 RX: Pantoprazole Sodium 40 mg PO DAILY 11/16/19 Verapamil HCl ER [Isoptin SR] 180 mg PO DAILY 11/16/19 Ibuprofen [Motrin] 600 mg PO Q6H PRN #20 tab 12/24/19 Methocarbamol [Robaxin] 500 - 1,000 mg PO Q6H PRN #30 tab 12/24/19 RX: Tramadol HCl 50 - 100 mg PO Q6H PRN #20 tab 12/24/19 Review of Systems - Review of Systems Constitutional: Denies: chills, fever EENTM: Denies: eye pain, nose pain, mouth pain Respiratory: Denies: cough, short of breath Cardiology: Denies: chest pain, palpitations Gastrointestinal/Abdominal: Denies: abdominal pain, diarrhea, nausea, vomiting Genitourinary: Denies: dysuria, hematuria Musculoskeletal: States: joint pain. Denies: back pain, muscle pain, neck pain Neurological: Denies: headache, numbness, tingling, weakness Endocrine: States: no symptoms reported Hematologic/Lymphatic: States: no symptoms reported Past Medical History (General) - Patient Medical History Hx Seizures: No Hx Stroke: No Hx of COPD: No Hx Cardiac Disorders: Yes - SVT Hx Congestive Heart Failure: No Hx Hypertension: No Hx Diabetes: No Hx Gastroesophageal Reflux: Yes Hx Cancer: No Hx Hepatitis C: No Hx MRSA: Yes MRSA Source:: Wound - Vaccination History Hx Tetanus, Diphtheria Vaccination: Yes Hx Influenza Vaccination: No Hx Pneumococcal Vaccination: No - Social History Hx Tobacco Use: Yes Hx Chewing Tobacco Use: No Hx Alcohol Use: No Hx Substance Use: No Hx Substance Use Treatment: No Hx Depression: No Hx Physical Abuse: No Hx Emotional Abuse: No Hx Suspected Abuse: No - Female History Patient : No - Hysterectomy Family Medical History - Family History Mother Family History: No Known Physical Exam - Physical Exam General Appearance: Alert, Comfortable, No apparent distress Eye Exam: bilateral normal Ears, Nose, Throat: hearing grossly normal, normal ENT inspection Neck: non-tender, full range of motion, supple, normal inspection Respiratory: chest non-tender, lungs clear, normal breath sounds, no respiratory distress, no accessory muscle use Cardiovascular/Chest: normal peripheral pulses, regular rate, rhythm, no edema, no gallop, no JVD Peripheral Pulses: radial,right: 2+, radial,left: 2+, dorsalis pedis,right: 2+, dorsalis pedis,left: 2+ Gastrointestinal/Abdominal: non tender, soft Back Exam: normal inspection, no vertebral tenderness Extremity: normal capillary refill, pelvis stable, other - She has tenderness over the lateral malleolus on the right ankle, the right fifth metatarsal. No proximal fibular tenderness, no calcaneal tenderness. There is no medial malleolar tenderness. No deformities, very minimal swelling. She also has tenderness over the distal left wrist with decreased range of motion due to pain, no swelling or deformities. Cap refill is less than 2 seconds. Sensation is normal. Neurologic: no motor/sensory deficits, alert, normal mood/affect, oriented x 3 Skin Exam: other - 1 x 1 cm superficial abrasion to the lateral aspect of the right ankle Progress - Results/Orders Results/Orders: Left wrist x-ray reviewed personally by me at 4:31 PM. No fracture, no dislocation. Right ankle x-ray reviewed personally by me at 4:34 PM. There is surgical hardware in place in the distal tibia, no fracture, no dislocation. Right foot x-ray reviewed personally by me at 4:35 PM. No fracture no dislocation. Departure - Departure Clinical Impression: Fall, Sprain of wrist, left, Ankle sprain Disposition: Discharge to Home or Self Care Condition: Good Departure Forms: ED Discharge - Pt. Copy, Patient Portal Self Enrollment Instructions: DI for Trauma Referrals: Gino Walker MD [Primary Care Provider] - 1-2 Weeks Prescriptions: Ibuprofen [Motrin] 600 mg PO Q6H PRN #20 tab PRN Reason: Pain Methocarbamol [Robaxin] 500 - 1,000 mg PO Q6H PRN #30 tab PRN Reason: muscle spasm RX: Tramadol HCl 50 - 100 mg PO Q6H PRN #20 tab PRN Reason: Moderate To Severe Pain Home Medications: Ambulatory Orders Lurasidone HCl [Latuda] 40 mg PO DAILY 11/16/19 RX: Pantoprazole Sodium 40 mg PO DAILY 11/16/19 Verapamil HCl ER [Isoptin SR] 180 mg PO DAILY 11/16/19 Ibuprofen [Motrin] 600 mg PO Q6H PRN #20 tab 12/24/19 Methocarbamol [Robaxin] 500 - 1,000 mg PO Q6H PRN #30 tab 12/24/19 RX: Tramadol HCl 50 - 100 mg PO Q6H PRN #20 tab 12/24/19
[2019-12-24 16:31] VITALS: TEMP 99.1; O2SAT 96
--- NOTE | 2019-12-24 16:50 | RAD ---
Study: 6 Views of the Right Foot and Right Ankle. Indication: FALL DOWN STAIRS Comparison: None. Impression: Prior surgical repair of the tibial plafond and medial malleolus with a total of 3 surgical screws. The medial malleolar screw head is proud at the inferior margin medial malleolus by 3.5 mm. Several millimetric adjacent calcifications noted. Remote/healed distal fibular fracture noted. Mild soft tissue swelling about the ankle. Small tibiotalar joint effusion. No acute fracture of the right ankle identified. Subtle obliquely oriented lucency at the medial cortex of the proximal fourth metatarsal shaft which may reflect a nondisplaced fracture or vascular groove. Correlation with point tenderness versus CT recommended. Remote appearing fracture of the distal shaft of the fifth metatarsal noted. 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 Mild plantar calcaneal heel spurring. Osteopenia. If this is a new finding, DEXA scan recommended as well as evaluation for possible osteoporosis treatment. Electronically signed by: Haider Cormier MD 12/24/2019 4:49 PM CDT
--- NOTE | 2019-12-24 16:51 | RAD ---
3 radiographs left wrist Indication: FALL DOWN STAIRS Comparison: None. Impression: No acute fracture or malalignment. If there is persistent anatomic snuffbox tenderness, repeat wrist imaging to include a scaphoid view is recommended in one week to evaluate for occult scaphoid fracture. Mild distal radioulnar joint osteoarthritis. Trace negative ulnar variance. Soft tissues are intact without radiopaque foreign body. Electronically signed by: Haider Cormier MD 12/24/2019 4:49 PM CDT
[2019-12-24 17:29] VITALS: BP 122/97
== END 2019-12-24 17:29 | disposition home or self-care (01) ==
LOC: ER 15:55
DX: S63.502A Unspecified sprain of left wrist, initial encounter (principal); S93.401A Sprain of unspecified ligament of right ankle, initial encounter; W10.9XXA Fall (on) (from) unspecified stairs and steps, initial encounter; Y92.9 Unspecified place or not applicable; Z87.891 Personal history of nicotine dependence

== ENCOUNTER 2020-03-11 08:36 | Emergency (ER) | payer OTHER ==
[2020-03-11] MEDS ORDERED: NITROGLYCERIN 0.4 MG 25 EA TAB SL ONE (08:55)
[2020-03-11] MEDS ORDERED: ASPIRIN TABLET 325 MG TAB PO ONE (08:56)
[2020-03-11] MEDS ORDERED: fentaNYL CITRATE INJ 50 MCG/ML AMP IV ONE (09:23)
[2020-03-11] MEDS ORDERED: fentaNYL CITRATE INJ 50 MCG/ML AMP ONE (09:26)
[2020-03-11] MEDS ORDERED: PANTOPRAZOLE SODIUM IV 40 MG VIAL IV ONE (09:55)
[2020-03-11] MEDS ORDERED: POTASSIUM CHLORIDE ELIXIR 20 MEQ/15 ML UD PO ONE (09:55)
[2020-03-11] MEDS ORDERED: NITROGLYCERIN 2% 1 GM UD TOP ONE (09:55)
[2020-03-11] MEDS ORDERED: MAGNESIUM SULFATE PREMIX 2GM 2 GM in PREMIX BAG 1 BAG IVPB ONE (09:55)
--- NOTE | 2020-03-11 10:06 | RAD ---
EXAM DESCRIPTION: Chest,2 Views CLINICAL HISTORY: left sided chest pain COMPARISON: November 16, 2019 TECHNIQUE: PA/lateral FINDINGS: The lungs are well expanded and clear. No infiltrates or effusions or masses are noted. The heart is normal in size and shape with no evidence of vascular congestion. The lolis and mediastinum demonstrate normal contours. The bony spine and chest wall is normal for age in appearance. IMPRESSION: Normal chest, two views Electronically signed by: Kenneth Garcia MD 03/11/2020 10:05 AM CDT
--- NOTE | 2020-03-11 10:46 | ED.PDOC ---
History of Present Illness - General Chief Complaint: Cardiovascular Problem Time Seen by Provider: 03/11/20 08:38 Source: patient Exam Limitations: no limitations - History of Present Illness Initial Comments: The patient is a 49-year-old female presented emergency room secondary to intermittent chest pain that has become more progressive and constant over the last 3 to 4 days. The patient has apparently had chest pain with her previous episodes of SVT, however the episodes of chest pain over the last 3 or 4 days do not appear to be related to any episodes of SVT. The patient sees Dr. Chapman and Dr. Toure. She apparently is supposed to have an ablation in the next couple of weeks. The patient denies having had any coronary evaluation in the form of an adenosine thallium scan or a catheterization in the past. She does have significant morbid obesity. The patient reports that the chest pain initially was mainly coming on with exertion but now is also coming on at rest. At its most severe it is about 8 out of 10. It does cause diaphoresis and some shortness of breath when it flares. It may be a little worse with taking a deep breath, she is uncertain. The patient does have left anterior chest wall discomfort to palpation but that has been ongoing for quite some time when looking back at her medical history. She reports that the pain with palpation of her chest wall is different than the pain which is feeling. She denies any fevers. No productive cough. Vital signs are stable. No hypoxia. Chest pain was not responsive to nitroglycerin here. Fentanyl did help. She does have background gastroesophageal reflux disease. Timing/Duration: other Severity: severe Improving Factors: nothing Worsening Factors: movement Associated Symptoms: chest pain Allergies/Adverse Reactions: Allergies Morphine Allergy (Verified 03/11/20 09:04) Penicillins Allergy (Verified 03/11/20 09:04) Home Medications: Ambulatory Orders Lurasidone HCl [Latuda] 40 mg PO DAILY 11/16/19 Pantoprazole Sodium 40 mg PO DAILY 11/16/19 Verapamil HCl ER [Isoptin SR] 180 mg PO DAILY 11/16/19 Ibuprofen [Motrin] 600 mg PO Q6H PRN #20 tab 12/24/19 Tramadol HCl 50 - 100 mg PO Q6H PRN #20 tab 12/24/19 Review of Systems - Review of Systems Constitutional: States: no symptoms reported EENTM: States: no symptoms reported Respiratory: States: no symptoms reported Cardiology: States: chest pain Gastrointestinal/Abdominal: States: no symptoms reported Genitourinary: States: no symptoms reported Musculoskeletal: States: see HPI Skin: States: no symptoms reported Neurological: States: anxiety Endocrine: States: no symptoms reported All other Systems: No Change from Baseline Past Medical History (General) - Patient Medical History Hx Seizures: No Hx Stroke: No Hx Asthma: No Hx of COPD: No Hx Cardiac Disorders: Yes - SVT Hx Congestive Heart Failure: No Hx Hypertension: No Hx Diabetes: No Hx Gastroesophageal Reflux: Yes Hx Cancer: No Hx Hepatitis C: No Hx MRSA: Yes MRSA Source:: Wound Surgical History: Hysterectomy - Vaccination History Hx Tetanus, Diphtheria Vaccination: Yes Hx Influenza Vaccination: No Hx Pneumococcal Vaccination: No - Social History Hx Tobacco Use: Yes Hx Chewing Tobacco Use: No Hx Alcohol Use: Yes Hx Substance Use: No Hx Substance Use Treatment: No Hx Depression: No Hx Physical Abuse: No Hx Emotional Abuse: No Hx Suspected Abuse: No - Female History Patient : No - Hysterectomy Family Medical History - Family History Mother Family History: No Known Physical Exam - Physical Exam General Appearance: Alert, Anxious Eye Exam: bilateral normal Ears, Nose, Throat: hearing grossly normal, normal pharynx Neck: full range of motion, supple Respiratory: lungs clear, normal breath sounds, no respiratory distress, no accessory muscle use, other - See history of present illness Cardiovascular/Chest: normal peripheral pulses, regular rate, rhythm, no edema Peripheral Pulses: radial,right: 2+, radial,left: 2+ Gastrointestinal/Abdominal: non tender - Morbidly obese, soft Rectal Exam: deferred Back Exam: no CVA tenderness, no vertebral tenderness Extremity: normal range of motion, non-tender, normal inspection, no pedal edema, normal capillary refill 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 The patient does have significant risk factors for coronary artery disease. 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 The patient has received a small dose of oral potassium and IV magnesium for deficiencies in both. She also received a dose of Protonix as well as doses of fentanyl for pain control. She received doses of nitroglycerin and has Nitropaste on currently. She is also receiving aspirin and Lovenox. Patient is being transferred for the evaluation. Acceptance is appreciated. suraj magana [phone] - Results/Orders Results/Orders: 2 view chest x-ray shows no acute pathology. No evidence of fluid overload. EKG shows normal sinus rhythm in the 80s. Normal axis. Normal R wave progression. No significant ST segment or T wave changes indicative of acute ischemia. Essentially normal QT interval. Laboratory Tests 03/11/20 03/11/20 03/11/20 08:45 08:45 08:45 WBC 7.6 RBC 4.47 Hgb 14.0 Hct 40.3 MCV 90.2 MCH 31.3 H MCHC 34.6 RDW 14.4 Plt Count 282 MPV 8.5 Absolute Neuts (auto) 4.70 Absolute Lymphs (auto) 2.00 Absolute Monos (auto) 0.60 Absolute Eos (auto) 0.20 Absolute Basos (auto) 0.10 Neutrophils % 62.6 Lymphocytes % 26.2 Monocytes % 7.4 Eosinophils % 2.4 Basophils % 1.4 PT 9.9 INR 1.00 PTT (SP) 26.2 D-Dimer, Quantitative < 131.0 L Sodium 136 Potassium 3.3 L Chloride 103 Carbon Dioxide 24 Anion Gap 12.3 BUN 14 Creatinine 0.60 BUN/Creatinine Ratio 23.3 H Random Glucose 129 H Serum Osmolality 274.1 L Calcium 8.7 Magnesium 1.7 L Total Bilirubin 0.9 AST 22 ALT 23 Alkaline Phosphatase 72 Creatine Kinase 69 CK-MB (CK-2) 2.4 CK-MB (CK-2) % Not Reportable Troponin I < 0.02 B-Natriuretic Peptide 29.4 Serum Total Protein 7.3 Albumin 4.1 Globulin 3.2 Albumin/Globulin Ratio 1.3 TSH Serum HCG, Qual 03/11/20 03/11/20 08:45 08:45 WBC RBC Hgb Hct MCV MCH MCHC RDW Plt Count MPV Absolute Neuts (auto) Absolute Lymphs (auto) Absolute Monos (auto) Absolute Eos (auto) Absolute Basos (auto) Neutrophils % Lymphocytes % Monocytes % Eosinophils % Basophils % PT INR PTT (SP) D-Dimer, Quantitative Sodium Potassium Chloride Carbon Dioxide Anion Gap BUN Creatinine BUN/Creatinine Ratio Random Glucose Serum Osmolality Calcium Magnesium Total Bilirubin AST ALT Alkaline Phosphatase Creatine Kinase CK-MB (CK-2) CK-MB (CK-2) % Troponin I B-Natriuretic Peptide Serum Total Protein Albumin Globulin Albumin/Globulin Ratio TSH 2.15 Serum HCG, Qual Negative - EKG/XRAY/CT CT Ordered: No Departure - Departure Clinical Impression: Chest pain Qualifiers: Chest pain type: unspecified Qualified Code(s): R07.9 - Chest pain, unspecified Disposition: Transfer to Hospital Departure Forms: ED Discharge - Pt. Copy, Patient Portal Self Enrollment Referrals: Gino Walker MD [Primary Care Provider] - 1-2 Weeks Home Medications: Ambulatory Orders Lurasidone HCl [Latuda] 40 mg PO DAILY 11/16/19 Pantoprazole Sodium 40 mg PO DAILY 11/16/19 Verapamil HCl ER [Isoptin SR] 180 mg PO DAILY 11/16/19 Ibuprofen [Motrin] 600 mg PO Q6H PRN #20 tab 12/24/19 Tramadol HCl 50 - 100 mg PO Q6H PRN #20 tab 12/24/19 Transfer to Outside Facility - Transfer Information Decision to Transfer Date: 03/11/20 Decision to Transfer Time: 10:50 Reason for Transfer: required specialist not available Accepting Provider:: dr pinon Accepting Facility: [facility]
[2020-03-11] MEDS ORDERED: ENOXAPARIN SODIUM 80 MG/0.8 ML SYG SUBCU ONE (10:56)
[2020-03-11] MEDS ORDERED: ENOXAPARIN SODIUM 40 MG/0.4 ML SYG SUBCU ONE (10:57)
[2020-03-11 12:32] VITALS: BP 141/79; TEMP 98.3; O2SAT 94
== END 2020-03-11 12:15 | disposition short-term general hospital (02) ==
LOC: ER 08:36
DX: R07.9 Chest pain, unspecified (principal); K21.9 Gastro-esophageal reflux disease without esophagitis; R06.02 Shortness of breath; E66.01 Morbid (severe) obesity due to excess calories; Z87.891 Personal history of nicotine dependence; Z79.899 Other long term (current) drug therapy; Z88.5 Allergy status to narcotic agent; Z88.0 Allergy status to penicillin; Z68.41 Body mass index [BMI] 40.0-44.9, adult
CPT/HCPCS: 36415; 71046; 80053; 82550; 82553; 83735; 83880; 84443; 84484; 84703; 85025; 85379; 85610; 85730; 93005; J1650; J3010; J3475

== ENCOUNTER 2020-03-17 19:40 | Emergency (ER) | payer OTHER ==
[2020-03-17] MEDS: ALUM & MAG HYDROX-SIMETHICONE 30 ML, LIDOCAINE VISCOUS 2% 15 ML PO ONE ×2 (20:00)
[2020-03-17] MEDS: ASPIRIN TABLET 325 MG TAB PO ONE (20:00)
[2020-03-17 20:57] VITALS: BP 142/76; TEMP 97.2; O2SAT 96
[2020-03-17] MEDS: POTASSIUM CHLORIDE ELIXIR 20 MEQ/15 ML UD PO ONE (21:08)
--- NOTE | 2020-03-17 21:13 | ED.PDOC ---
History of Present Illness - General Chief Complaint: Cardiovascular Problem Stated Complaint: chest pain and shortness of breath Time Seen by Provider: 03/17/20 19:42 Source: patient Exam Limitations: no limitations - History of Present Illness Initial Comments: The patient is a 49-year-old female presented emergency room secondary to substernal chest pain that is recurrent. The patient actually spent 4 days at [facility] undergoing cardiac work-up this last week. Apparently they did not find significant coronary artery disease. She was sent home with met oprolol and aspirin as well as a cholesterol medication. She apparently did have several nuclear stress test and did have a coronary catheterization. She also apparently had an echocardiogram. Chest pain this evening developed about an hour after the patient ate supper. She was sitting up at the time. She took a nitroglycerin which did not help the chest pain but did make her break out in a sweat and get dizzy. Patient is still having chest pain at about a 7 out of 10 upon arrival. Pain is almost completely resolved with a GI cocktail. The patient had previously failed to have any pain relief with nitroglycerin and fentanyl even in the past and barely provided any relief. On further review of her history the patient does apparently have a very significant history of gastritis and gastroesophageal reflux disease. Additionally she may have some component of lactose intolerance and gluten sensitivity. The patient is feeling much better at this time. Timing/Duration: 1/2 hour Severity: moderate Improving Factors: medication Worsening Factors: nothing Associated Symptoms: chest pain, loss of appetite, malaise Allergies/Adverse Reactions: Allergies Morphine Allergy (Verified 03/11/20 09:04) Penicillins Allergy (Verified 03/11/20 09:04) Home Medications: Ambulatory Orders Lurasidone HCl [Latuda] 40 mg PO DAILY 11/16/19 Pantoprazole Sodium 40 mg PO DAILY 11/16/19 Verapamil HCl ER [Isoptin SR] 180 mg PO DAILY 11/16/19 Ibuprofen [Motrin] 600 mg PO Q6H PRN #20 tab 12/24/19 Tramadol HCl 50 - 100 mg PO Q6H PRN #20 tab 12/24/19 Famotidine [Pepcid Tab] 20 mg PO BID #60 tab 03/17/20 Potassium Chloride [Potassium Chloride ER] 10 meq PO DAILY #30 cap 03/17/20 Sucralfate Tab [Carafate Tab] 1 gm PO QID #120 tab 03/17/20 Review of Systems - Review of Systems Constitutional: States: no symptoms reported EENTM: States: no symptoms reported Respiratory: States: no symptoms reported Cardiology: States: no symptoms reported, chest pain Gastrointestinal/Abdominal: States: see HPI Genitourinary: States: no symptoms reported Musculoskeletal: States: no symptoms reported Skin: States: no symptoms reported Neurological: States: no symptoms reported Endocrine: States: no symptoms reported All other Systems: No Change from Baseline Past Medical History (General) - Patient Medical History Hx Seizures: No Hx Stroke: No Hx Asthma: No Hx of COPD: No Hx Cardiac Disorders: Yes - SVT Hx Congestive Heart Failure: No Hx Hypertension: No Hx Diabetes: No Hx Gastroesophageal Reflux: Yes Hx Cancer: No Hx Hepatitis C: No Hx MRSA: Yes MRSA Source:: Wound - Vaccination History Hx Tetanus, Diphtheria Vaccination: Yes Hx Influenza Vaccination: No Hx Pneumococcal Vaccination: No - Social History Hx Tobacco Use: Yes Hx Chewing Tobacco Use: No Hx Alcohol Use: Yes Hx Substance Use: No Hx Substance Use Treatment: No Hx Depression: No Hx Physical Abuse: No Hx Emotional Abuse: No Hx Suspected Abuse: No - Female History Patient is a Female of Child Bearing Age (10 -59 yrs old): Yes Patient : No - Hysterectomy Family Medical History - Family History Mother Family History: No Known Physical Exam - Physical Exam General Appearance: Alert, No apparent distress Eye Exam: bilateral normal Ears, Nose, Throat: hearing grossly normal, normal pharynx Neck: full range of motion, supple Respiratory: lungs clear, normal breath sounds, no respiratory distress, no accessory muscle use Cardiovascular/Chest: normal peripheral pulses, regular rate, rhythm, no edema Peripheral Pulses: radial,right: 2+, radial,left: 2+ Gastrointestinal/Abdominal: non tender, soft, other - Obese Rectal Exam: deferred Back Exam: no CVA tenderness, no vertebral tenderness Extremity: normal range of motion, non-tender, normal inspection, no pedal edema, normal capillary refill Neurologic: coat baster II-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 The patient had undergone a very extensive cardiac work-up at [facility] this previous week apparently failing to show significant coronary artery disease. The patient's chest pain was almost entirely relieved with a GI cocktail here, and upon further questioning the patient does apparently have a history of significant reflux issues. The patient should avoid dairy and gluten for the near future. Additionally I would recommend that she hold her [id number] supplements for the next 2 weeks. The patient is going to be written for famotidine and Carafate for the next month. She also needs to continuous pickling line pickler liquid Maalox to take on an as needed daily basis. Long-term she does need to work on weight loss and a good diet. She seems to already be starting this. Obviously avoid large meals, spicy foods, nicotine or as these make the issue worse. She does also need to follow-up with her primary care doctor in the near future to get set up with an EGD. The patient does have some mild hypokalemia and will be written for a mild potassium supplement. ER warnings are given for any worsening. Vital signs, telemetry, EKG and lab work are reassuring. suraj magana [id number] - Results/Orders Results/Orders: EKG shows normal sinus rhythm at 76 bpm. Normal axis. Normal R wave progression. No ST segment or T wave changes indicative of acute ischemia. Normal QT interval. This is consistent with previous EKGs. Laboratory Tests 03/17/20 03/17/20 03/17/20 20:18 20:18 20:18 WBC 9.0 RBC 4.40 Hgb 13.7 Hct 39.5 MCV 89.7 MCH 31.1 H MCHC 34.7 RDW 14.1 Plt Count 285 MPV 8.2 Absolute Neuts (auto) 6.00 Absolute Lymphs (auto) 1.90 Absolute Monos (auto) 0.90 H Absolute Eos (auto) 0.20 Absolute Basos (auto) 0.10 Neutrophils % 66.2 Lymphocytes % 20.6 Monocytes % 10.0 H Eosinophils % 2.1 Basophils % 1.1 PT 9.9 INR 1.00 PTT (SP) 26.4 Sodium Potassium Chloride Carbon Dioxide Anion Gap BUN Creatinine BUN/Creatinine Ratio Random Glucose Serum Osmolality Calcium Magnesium Total Bilirubin AST ALT Alkaline Phosphatase Creatine Kinase 49 CK-MB (CK-2) 1.6 CK-MB (CK-2) % Not Reportable Troponin I 0.02 B-Natriuretic Peptide 20.3 Serum Total Protein Albumin Globulin Albumin/Globulin Ratio 03/17/20 20:18 WBC RBC Hgb Hct MCV MCH MCHC RDW Plt Count MPV Absolute Neuts (auto) Absolute Lymphs (auto) Absolute Monos (auto) Absolute Eos (auto) Absolute Basos (auto) Neutrophils % Lymphocytes % Monocytes % Eosinophils % Basophils % PT INR PTT (SP) Sodium 138 Potassium 3.4 L Chloride 105 Carbon Dioxide 26 Anion Gap 10.4 L BUN 22 H Creatinine 0.74 BUN/Creatinine Ratio 29.7 H Random Glucose 129 H Serum Osmolality 280.7 Calcium 9.0 Magnesium 1.8 Total Bilirubin 0.4 AST 18 ALT 25 Alkaline Phosphatase 66 Creatine Kinase CK-MB (CK-2) CK-MB (CK-2) % Troponin I B-Natriuretic Peptide Serum Total Protein 7.0 Albumin 4.1 Globulin 2.9 Albumin/Globulin Ratio 1.4 Departure - Departure Clinical Impression: Esophagitis Disposition: Discharge to Home or Self Care Condition: Fair Departure Forms: ED Discharge - Pt. Copy, Patient Portal Self Enrollment Instructions: Acid Reflux and GERD in Adults (DC) Diet: bland diet Activity: increase activity as tolerated Referrals: Gino Walker MD [Primary Care Provider] - 1-2 Weeks Prescriptions: Famotidine [Pepcid Tab] 20 mg PO BID #60 tab Potassium Chloride [Potassium Chloride ER] 10 meq PO DAILY #30 cap Sucralfate Tab [Carafate Tab] 1 gm PO QID #120 tab Home Medications: Ambulatory Orders Lurasidone HCl [Latuda] 40 mg PO DAILY 11/16/19 Pantoprazole Sodium 40 mg PO DAILY 11/16/19 Verapamil HCl ER [Isoptin SR] 180 mg PO DAILY 11/16/19 Ibuprofen [Motrin] 600 mg PO Q6H PRN #20 tab 12/24/19 Tramadol HCl 50 - 100 mg PO Q6H PRN #20 tab 12/24/19 Famotidine [Pepcid Tab] 20 mg PO BID #60 tab 03/17/20 Potassium Chloride [Potassium Chloride ER] 10 meq PO DAILY #30 cap 03/17/20 Sucralfate Tab [Carafate Tab] 1 gm PO QID #120 tab 03/17/20 Additional Instructions: The patient is a 49-year-old female presented to the emergency room secondary to a recurrence of her chest pain. The patient had undergone a very extensive cardiac work-up at [facility] this previous week apparently failing to show significant coronary artery disease. The patient's chest pain was almost entirely relieved with a GI cocktail here, and upon further questioning the patient does apparently have a history of significant reflux issues. The patient should avoid dairy and gluten for the near future. Additionally I would recommend that she hold her [id number] supplements for the next 2 weeks. The patient is going to be written for famotidine and Carafate for the next month. She also needs to continuous pickling line pickler liquid Maalox to take on an as needed daily basis. Long-term she does need to work on weight loss and a good diet. She seems to already be starting this. Obviously avoid large meals, spicy foods, nicotine or as these make the issue worse. She does also need to follow-up with her primary care doctor in the near future to get set up with an EGD. The patient does have some mild hypokalemia and will be written for a mild potassium supplement. ER warnings are given for any worsening. Vital signs, telemetry, EKG and lab work are reassuring.
== END 2020-03-17 21:25 | disposition home or self-care (01) ==
LOC: ER 19:40
DX: K20.9 Esophagitis, unspecified (principal); E87.6 Hypokalemia; R53.81 Other malaise; E66.9 Obesity, unspecified; R07.9 Chest pain, unspecified; F17.200 Nicotine dependence, unspecified, uncomplicated

== ENCOUNTER → 2020-04-12 | Emergency (ER) | payer OTHER | LOC: ER 08:17 | DX: R07.9 Chest pain, unspecified (principal); Z53.21 Procedure and treatment not carried out due to patient leaving prior to being seen by health care provider ==

== ENCOUNTER 2020-04-26 14:15 | Emergency (ER) | payer OTHER ==
[2020-04-26] MEDS ORDERED: ADENOSINE INJECTION 6 MG/2 ML VIAL IV ONE (14:29)
[2020-04-26] MEDS: SODIUM CHLORIDE 0.9% 1000ML 1,000 ML IVS ONE (14:32)
[2020-04-26] MEDS: ASPIRIN (CHEWABLE) 81 MG TAB PO ONE (14:34)
[2020-04-26] MEDS: ADENOSINE INJECTION 6 MG/2 ML VIAL IV ONE ×2 (14:35→14:40)
[2020-04-26] MEDS ORDERED: NITROGLYCERIN 0.4 MG 25 EA TAB SL ONE (14:42)
[2020-04-26] MEDS: NITROGLYCERIN 0.4 MG 25 EA TAB SL ONE ×2 (14:52→16:06)
[2020-04-26] MEDS: SODIUM CHLORIDE 0.9% (FLUSH) 10 ML SYG IV PRN (14:53)
--- NOTE | 2020-04-26 14:58 | RAD ---
EXAM DESCRIPTION: Chest,1 View CLINICAL HISTORY: 49 years Female, chest pain, SVT's COMPARISON: Previous chest x-ray March 11, 2020 TECHNIQUE: AP portable chest. FINDINGS: Heart size is normal with normal pulmonary vascularity. Linear density of the right axilla could be intravenous catheter or something overlying the patient. No consolidating infiltrate. No pulmonary mass or worrisome nodule. No pneumothorax or pleural effusion. Bones are unremarkable. IMPRESSION: No acute process is identified in the chest. Electronically signed by: Miki Jimenez MD 04/26/2020 2:57 PM CDT
--- NOTE | 2020-04-26 15:28 | ED.PDOC ---
History of Present Illness - General Chief Complaint: Chest Pain/PA Stated Complaint: SVT, CHEST PAIN Time Seen by Provider: 04/26/20 14:28 Source: patient - History of Present Illness Initial Comments: 49 yo female with PMH of SVT's s/p ablation 04/06/2020, a-fib who presents to ED with cc of palpitations and chest pain. 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 Also reports onset of chest pain - reported as pressure, 6/10 severity, located to center of chest, radiates down L arm, worse with exertion, no meds taken for relief. States she had cardiac ablation by Dr. Chapman at [facility] on 04/06 and it was a prolonged and complicated procedure - had to try 5-6 ablations and then abandoned procedure due to some complications. Reports she has hx of refractory/frequent SVT's. Has been doing well until today. Denies any fevers, chills, abd pain, n/v/d, leg swelling, urinary sx's. Reports moderate dyspnea. Allergies/Adverse Reactions: Allergies Morphine Allergy (Verified 03/11/20 09:04) Penicillins Allergy (Verified 03/11/20 09:04) Home Medications: Ambulatory Orders Lurasidone HCl [Latuda] 40 mg PO DAILY 11/16/19 Pantoprazole Sodium 40 mg PO DAILY 11/16/19 Verapamil HCl ER [Isoptin SR] 180 mg PO DAILY 11/16/19 Ibuprofen [Motrin] 600 mg PO Q6H PRN #20 tab 12/24/19 Tramadol HCl 50 - 100 mg PO Q6H PRN #20 tab 12/24/19 Famotidine [Pepcid Tab] 20 mg PO BID #60 tab 03/17/20 Potassium Chloride [Potassium Chloride ER] 10 meq PO DAILY #30 cap 03/17/20 Sucralfate Tab [Carafate Tab] 1 gm PO QID #120 tab 03/17/20 Review of Systems - Review of Systems Review of Systems: 04/26/20 15:28 as per HPI All other Systems: Reviewed and Negative Past Medical History (General) - Patient Medical History Hx Seizures: No Hx Stroke: No Hx Asthma: No Hx of COPD: No Hx Cardiac Disorders: Yes - SVT Hx Congestive Heart Failure: No Hx Hypertension: No Hx Diabetes: No Hx Gastroesophageal Reflux: Yes Hx Cancer: No Hx Hepatitis C: No Hx MRSA: Yes MRSA Source:: Wound - Vaccination History Hx Tetanus, Diphtheria Vaccination: Yes Hx Influenza Vaccination: No Hx Pneumococcal Vaccination: No - Social History Hx Tobacco Use: Yes Hx Chewing Tobacco Use: No Hx Alcohol Use: Yes Hx Substance Use: No Hx Substance Use Treatment: No Hx Depression: No Hx Physical Abuse: No Hx Emotional Abuse: No Hx Suspected Abuse: No - Female History Patient : No - Hysterectomy Family Medical History - Family History Mother Family History: No Known Physical Exam - Physical Exam General Appearance: Alert, Anxious, No apparent distress Eye Exam: bilateral normal Ears, Nose, Throat: hearing grossly normal, normal ENT inspection, normal pharynx Neck: non-tender, full range of motion, supple, normal inspection Respiratory: lungs clear, normal breath sounds, no respiratory distress, no accessory muscle use Cardiovascular/Chest: no edema, no gallop, no JVD, no murmur, tachycardia Peripheral Pulses: radial,right: 2+, radial,left: 2+ Gastrointestinal/Abdominal: non tender, soft, no organomegaly Back Exam: normal inspection, no CVA tenderness, no vertebral tenderness Extremity: normal range of motion, non-tender, normal inspection, no pedal edema, no calf tenderness, normal capillary refill 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 BP stable. -Pads placed on arrival, PIV placed, NS bolus begun, adenosine 6 mg IV push given w/o change followed by 12 mg IV push with cardioversion to sinus tachycardia approx 3 mins later, repeat EKG done confirming new rhythm -consider also ACS, CHF, PE, PNA, electrolyte derangement, valvular abnormalities, other -stat cardiac work-up, bloodwork, cardiac monitoring, anticipate transfer for cardiology consultation 04/26/20 15:38 -Pt remains stable, sinus tachycardia improving, HR 105, vitals otherwise stable. CP much improved also nearly resolved. -Labs reveal K 3.3 (replenished orally), trop 0.02, d-dimer wnl, Mg 1.9, otherwise unremarkable -Spoke with Dr. Truong at [facility] who accepts pt for ED to ED transfer. Dr. Chapman also aware. Ike Weaver MD Billing #[id number] 04/26/20 14:29 IV Care:Saline Lock per Protoc QSHIFT Telemetry .ONCE Sodium Chloride 0.9% (Flush) [Saline Flush Syringe] 10 ml IV PRN PRN 04/26/20 14:30 B-TYPE NATRIURETIC PEPTIDE/BNP Stat BASIC METABOLIC PANEL Stat MAGNESIUM Stat THYROID STIMULATING HORMONE Stat EKG STAT URINALYSIS Stat 04/27/20 09:00 Pulse Ox Daily Laboratory Results - last 24 hr 04/26/20 04/26/20 04/26/20 14:30 14:30 14:30 WBC 10.6 RBC 4.43 Hgb 14.0 Hct 39.7 MCV 89.6 MCH 31.6 H MCHC 35.3 RDW 14.0 Plt Count 324 MPV 8.7 Absolute Neuts (auto) 6.30 Absolute Lymphs (auto) 3.20 Absolute Monos (auto) 0.90 H Absolute Eos (auto) 0.20 Absolute Basos (auto) 0.10 Neutrophils % 59.0 Lymphocytes % 29.7 Monocytes % 8.3 Eosinophils % 1.8 Basophils % 1.2 D-Dimer, Quantitative < 131.0 L Sodium 140 Potassium 3.3 L Chloride 106 Carbon Dioxide 23 Anion Gap 14.3 BUN 16 Creatinine 0.82 BUN/Creatinine Ratio 19.5 Random Glucose 98 Serum Osmolality 280.6 Calcium 9.2 Magnesium 1.9 Troponin I B-Natriuretic Peptide 59.0 04/26/20 14:30 WBC RBC Hgb Hct MCV MCH MCHC RDW Plt Count MPV Absolute Neuts (auto) Absolute Lymphs (auto) Absolute Monos (auto) Absolute Eos (auto) Absolute Basos (auto) Neutrophils % Lymphocytes % Monocytes % Eosinophils % Basophils % D-Dimer, Quantitative Sodium Potassium Chloride Carbon Dioxide Anion Gap BUN Creatinine BUN/Creatinine Ratio Random Glucose Serum Osmolality Calcium Magnesium Troponin I < 0.02 B-Natriuretic Peptide - EKG/XRAY/CT EKG: Atrial - SVTs, HR 180, no ST elevs or q waves noted, nonspecific min ST segment depressions noted diffusely likely repol abnormality, axis normal, intervals normal, compared to 03/17/2020 EKG SVTs are new. XRAY: chest - no acute processes per my read - Additional EKG/XRAY/Consults EKG #2: Changed from - initial. SVT's resolved following adenosine 6 mg, then 12 mg IV push - cardioverted to sinus tachycardia, HR 125, ST segment changes resolved, otherwise unchanged. Departure - Departure Clinical Impression: SVT (supraventricular tachycardia), Chest pressure Time of Disposition: 15:37 Disposition: Transfer to Hospital Departure Forms: ED Discharge - Pt. Copy, Patient Portal Self Enrollment Referrals: Gino Walker MD [Primary Care Provider] - 1-2 Weeks Home Medications: Ambulatory Orders Lurasidone HCl [Latuda] 40 mg PO DAILY 11/16/19 Pantoprazole Sodium 40 mg PO DAILY 11/16/19 Verapamil HCl ER [Isoptin SR] 180 mg PO DAILY 11/16/19 Ibuprofen [Motrin] 600 mg PO Q6H PRN #20 tab 12/24/19 Tramadol HCl 50 - 100 mg PO Q6H PRN #20 tab 12/24/19 Famotidine [Pepcid Tab] 20 mg PO BID #60 tab 03/17/20 Potassium Chloride [Potassium Chloride ER] 10 meq PO DAILY #30 cap 03/17/20 Sucralfate Tab [Carafate Tab] 1 gm PO QID #120 tab 03/17/20 Critical Care Note - Critical Care Note Total Time (mins): 45 Comments: Critical Care Time: Upon my evaluation, this patient had a high probability of life-threatening deterioration due to supraventricular tachycardia, which required my direct attention, intervention, and management. I have provided 45 minutes of critical care time exclusive of separately billable procedures. My time included: direct patient care, review of labs and radiology, obtaining history from and counseling the patient, discussion with consultants and other medical personnel, documentation, and monitoring for potential decompensation. Transfer to Outside Facility - Transfer Information Decision to Transfer Date: 04/26/20 Decision to Transfer Time: 15:38 Reason for Transfer: required specialist not available - cardiology Accepting Provider:: Dr. Truong Accepting Facility: [facility]
[2020-04-26] MEDS: POTASSIUM CHLORIDE 20 MEQ TAB PO ONE (16:10)
[2020-04-26 17:19] VITALS: BP 148/92; TEMP 98.4; O2SAT 99
== END 2020-04-26 16:35 | disposition short-term general hospital (02) ==
LOC: ER 14:15
DX: I47.1 Supraventricular tachycardia (principal); R07.89 Other chest pain; K21.9 Gastro-esophageal reflux disease without esophagitis; Z87.891 Personal history of nicotine dependence; Z79.899 Other long term (current) drug therapy; Z88.5 Allergy status to narcotic agent; Z88.0 Allergy status to penicillin; Z98.890 Other specified postprocedural states
CPT/HCPCS: 36415; 71045; 80048; 83735; 83880; 84443; 84484; 85025; 85379; 93005; 94760; J0153; J7030

== ENCOUNTER 2020-07-06 12:35 | Emergency (ER) | payer OTHER ==
[2020-07-06] MEDS ORDERED: MORPHINE SULFATE INJ 10 MG/ML VIAL IV ONE (12:45)
[2020-07-06] MEDS ORDERED: ONDANSETRON INJ 4 MG/2 ML VIAL IV ONE (12:45)
--- NOTE | 2020-07-06 12:48 | ED.PDOC ---
History of Present Illness - General Time Seen by Provider: 07/06/20 12:43 Information Source: patient, RN notes reviewed, Vital Signs reviewed Additional Information: This is a patient presents to the ER with left lower quadrant pain since last night, patient described the pain as sharp left lower quadrant 9 out of 10. Yesterday, patient has had a history of dysuria but she has had been tested for UTIs and they were all negative, patient has had light urinary symptoms for the past couple of weeks, patient had an endoscopy done recently had a biopsy looking for H. pylori, and she was recently diagnosed with celiac disease. Patient also has a history of cardiac arrhythmias and has had multiple ablations in the past. Patient also mentions that about 15 years ago she did have a kidney stone was treated with lithotrypsi, and this feels like a kidney stone Mention that she also has been working out recently - History of Present Illness Abdominal Pain Onset Location: LLQ Pain Radiation: groin Quality: stabbing Timing/Duration: other - since yesterday Improving Factors: nothing Worsening Factors: nothing Associated Symptoms: denies symptoms Review of Systems - Review of Systems Constitutional: States: no symptoms reported EENTM: States: no symptoms reported Respiratory: States: no symptoms reported Cardiology: States: no symptoms reported Gastrointestinal/Abdominal: States: abdominal pain Genitourinary: States: no symptoms reported Musculoskeletal: States: no symptoms reported Skin: States: no symptoms reported Neurological: States: no symptoms reported Endocrine: States: no symptoms reported Hematologic/Lymphatic: States: no symptoms reported Past Medical History (General) - Patient Medical History Hx Seizures: No Hx Stroke: No Hx Asthma: No Hx of COPD: No Hx Cardiac Disorders: Yes - SVT Hx Congestive Heart Failure: No Hx Hypertension: No Hx Diabetes: No Hx Gastroesophageal Reflux: Yes Hx Cancer: No Hx Hepatitis C: No Hx MRSA: Yes MRSA Source:: Wound - Vaccination History Hx Tetanus, Diphtheria Vaccination: Yes Hx Influenza Vaccination: No Hx Pneumococcal Vaccination: No - Social History Hx Tobacco Use: Yes Hx Chewing Tobacco Use: No Hx Alcohol Use: Yes Hx Substance Use: No Hx Substance Use Treatment: No Hx Depression: No Hx Physical Abuse: No Hx Emotional Abuse: No Hx Suspected Abuse: No - Female History Patient : No - Hysterectomy Family Medical History - Family History Mother Family History: No Known Physical Exam - Physical Exam General Appearance: Agitated, Well Developed, Well Groomed, Well Hydrated, Well Nourished Eyes, Ears, Nose, Throat Exam: PERRL/EOMI, normal ENT inspection, TMs normal Neck: non-tender, full range of motion, supple, normal inspection Respiratory: chest non-tender, lungs clear, normal breath sounds, no respiratory distress, no accessory muscle use Cardiovascular/Chest: normal peripheral pulses, regular rate, rhythm, no edema, no gallop, no JVD, no murmur Peripheral Pulses: No deficit Gastrointestinal/Abdominal: other - left lower quadrant pain, no acute abdomen, no right lower quadrant pain Back Exam: normal inspection, no CVA tenderness, no vertebral tenderness 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 Likely within normal limits, patient UA was consistent with a UTI patient will receive a dose of IV antibiotics here will receive Rocephin, and will be discharged home with Keflex. Instructions will be given to return to the ER immediately if there is any fever chills nausea vomiting diarrhea bloody stools unwanted weight loss decreased oral intake right lower quadrant pain back pain unable to monitor fluids down or any other concern 07/06/20 14:37 Departure - Departure Clinical Impression: Urinary tract infection Qualifiers: Urinary tract infection type: acute cystitis Hematuria presence: without hematuria Qualified Code(s): N30.00 - Acute cystitis without hematuria Disposition: Discharge to Home or Self Care Condition: Fair Diet: resume usual diet Referrals: Gino Walker MD [Primary Care Provider] - 1-2 Weeks Prescriptions: Acetaminophen W/ Codeine [Tylenol W/ CODEINE #3] 1 ea PO Q6HR #20 ea Cephalexin Monohydrate [Keflex] 500 mg PO BID #14 cap Home Medications: Ambulatory Orders Pantoprazole Sodium 40 mg PO DAILY 11/16/19 Sucralfate Tab [Carafate Tab] 1 gm PO QID #120 tab 03/17/20 Acetaminophen W/ Codeine [Tylenol W/ CODEINE #3] 1 ea PO Q6HR #20 ea 07/06/20 Cephalexin Monohydrate [Keflex] 500 mg PO BID #14 cap 07/06/20 DULoxetine HCL [Cymbalta] 30 mg PO DAILY 07/06/20 Dofetilide 250 mcg PO BID 07/06/20 Metoprolol Tartrate 25 mg PO BID 07/06/20
[2020-07-06 12:50] VITALS: TEMP 98.8
[2020-07-06] MEDS ORDERED: KETOROLAC TROMETHAMINE INJ 30 MG/ML VIAL IV ONE (12:52)
[2020-07-06] MEDS ORDERED: HYDROcodone 10MG/APAP 325MG 1 EA TAB PO ONE (13:44)
--- NOTE | 2020-07-06 14:27 | CT ---
EXAM DESCRIPTION: CT ABDOMEN AND PELVIS WITH CONTRAST CLINICAL HISTORY: llq pain COMPARISON: None Available. TECHNIQUE: CT of the abdomen and pelvis are performed during IV bolus administration of nonionic contrast. Oral contrast media was not administered. This exam was performed according to our departmental dose-optimization program, which includes automated exposure control, adjustment of the mA and/or kV according to patient size and/or use of iterative reconstruction technique. FINDINGS: The lung bases are clear of infiltrate. Moderate cardiomegaly with the liver measuring 21 cm in length is present with normal contour without cystic or solid mass. No ductal dilation noted. Normally distended gallbladder without wall thickening or stones. Mild splenomegaly. No abdominal or pelvic ascites. Small normal adrenal glands. Normal enhancement of the pancreas without cyst or mass or inflammation. Normal contour of the kidneys with small left upper pole posterior renal cyst approximately 1 cm in size. No stone disease mass or perinephric inflammation. Normal vena cava and aorta with mild atherosclerotic calcification. Retroaortic left renal vein. Small and large bowel caliber is normal with stool-filled colon. Diverticulosis or acute diverticulitis is not apparent in the left lower quadrant. Poorly distended bladder at the inferior pelvis with either prominent vaginal cuff or small atrophic uterus or cervical stump noted. No adnexal masses seen. No abdominal or pelvic ascites or mesenteric mass seen. Fat-containing ventral hernia in the midline supraumbilical region with approximate 1 cm fascial defect five or 6 cm above the umbilicus. No inguinal abnormality. No pelvic sidewall disease or fluid collections in the cul-de-sac noted. Normal alignment lumbar spine without compression deformity with disc degenerative narrowing and vacuum phenomena L5-S1 and minimal approximate 2 mm anterolisthesis at L4-5 with facet degenerative disease. Mild levoscoliosis of the lumbar spine. IMPRESSION: 1. Hepatomegaly without focal cystic or solid hepatic mass. Mild splenomegaly without ascites. 2. Fat-containing ventral hernia in the midline supraumbilical region with approximate 1 cm fascial defect and 3 x 5 cm hernia sac containing mesenteric fat. 3. Degenerative disc disease L5-S1 and facet arthropathy L4-5 with 1-2 mm degenerative spondylolisthesis. Mild levoscoliosis lumbar spine. 4. Stool-filled colon with no evidence of acute diverticulitis or left lower quadrant or right lower quadrant inflammatory changes Electronically signed by: Kenneth Garcia MD 07/06/2020 2:26 PM SMALL MACHINE BINDERY OPERATOR
[2020-07-06] MEDS ORDERED: cefTRIAXone SODIUM 1 GM in SODIUM CHL 0.9% 50ML MIN-BAG+ 50 ML IVPB ONE (14:42)
[2020-07-06 15:37] VITALS: BP 118/90; O2SAT 97
== END 2020-07-06 15:37 | disposition home or self-care (01) ==
LOC: ER 12:35
DX: N30.00 Acute cystitis without hematuria (principal); K21.9 Gastro-esophageal reflux disease without esophagitis; K90.0 Celiac disease; Z87.891 Personal history of nicotine dependence; Z90.710 Acquired absence of both cervix and uterus
CPT/HCPCS: 36415; 74177; 80053; 81001; 83690; 84484; 85025; 87086; 93005; J0696; J1885; J7050

== ENCOUNTER 2020-08-25 18:36 | Emergency (ER) | payer OTHER ==
[2020-08-25] MEDS ORDERED: SODIUM CHLORIDE 0.9% 1000ML 1,000 ML ONE (18:41)
[2020-08-25] MEDS ORDERED: SODIUM CHLORIDE 0.9% (FLUSH) 10 ML SYG IV PRN (18:42)
[2020-08-25] MEDS ORDERED: ADENOSINE INJECTION 6 MG/2 ML VIAL IV ONE ×3 (18:43→18:53)
[2020-08-25] MEDS ORDERED: SODIUM CHLORIDE 0.9% 1000ML 1,000 ML IVS ONE (18:43)
--- NOTE | 2020-08-25 18:44 | ED.PDOC ---
History of Present Illness - General Time Seen by Provider: 08/25/20 18:40 Source: patient - History of Present Illness Initial Comments: 49-year-old female with past medical history of A. 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 Reports sudden onset of symptoms about 30 minutes prior to arrival while sitting at home. Patient does state that she had 1 glass of champagne earlier today but denies any caffeine or drug use. She describes the symptoms as "feeling like my heart is trying to beat out of my chest", constant, severe, worse with activity/exertion. No medications taken for relief. Additionally reports severe dizziness and moderate tightness in her chest without radiation. Denies any fevers, chills, sore throat, headaches, body aches, abdominal pain, nausea/vomiting/diarrhea, leg swelling. Patient has known history of recurrent SVTs. Last episode was 04/26/2020. She was seen here in the ED at that time and cardioverted after 2 doses of adenosine. Her hotbed lever operator is Dr. Chapman. She underwent cardiac ablation on 04/06/2020 but continues to have issues. She reports she was recently started on dofetilide 250 mcg in the morning and 150 mcg in the evening and feels that it has been working well until today. Additionally takes metoprolol 25 mg BID. Patient reports that she has had a recent heart cath which was completely clean. Allergies/Adverse Reactions: Allergies Morphine Allergy (Verified 03/11/20 09:04) Penicillins Allergy (Verified 03/11/20 09:04) Home Medications: Ambulatory Orders Pantoprazole Sodium 40 mg PO DAILY 11/16/19 Sucralfate Tab [Carafate Tab] 1 gm PO QID #120 tab 03/17/20 Acetaminophen W/ Codeine [Tylenol W/ CODEINE #3] 1 ea PO Q6HR #20 ea 07/06/20 Cephalexin Monohydrate [Keflex] 500 mg PO BID #14 cap 07/06/20 DULoxetine HCL [Cymbalta] 30 mg PO DAILY 07/06/20 Dofetilide 250 mcg PO BID 07/06/20 Metoprolol Tartrate 25 mg PO BID 07/06/20 Azithromycin Tab [Zithromax Tab] 250 mg PO DAILY 4 Days #4 tab 08/25/20 Review of Systems - Review of Systems Review of Systems: 08/25/20 19:36 as per HPI All other Systems: Reviewed and Negative Past Medical History (General) - Patient Medical History Hx Seizures: No Hx Stroke: No Hx Asthma: No Hx of COPD: No Hx Cardiac Disorders: Yes - SVT Hx Congestive Heart Failure: No Hx Hypertension: No Hx Diabetes: No Hx Gastroesophageal Reflux: Yes Hx Cancer: No Hx Hepatitis C: No Hx MRSA: Yes MRSA Source:: Wound - Vaccination History Hx Tetanus, Diphtheria Vaccination: Yes Hx Influenza Vaccination: No Hx Pneumococcal Vaccination: No - Social History Hx Tobacco Use: Yes Hx Chewing Tobacco Use: No Hx Alcohol Use: Yes Hx Substance Use: No Hx Substance Use Treatment: No Hx Depression: No Hx Physical Abuse: No Hx Emotional Abuse: No Hx Suspected Abuse: No - Female History Patient : No - Hysterectomy Family Medical History - Family History Mother Family History: No Known Physical Exam - Physical Exam General Appearance: Alert, Anxious, No apparent distress Eye Exam: bilateral normal Ears, Nose, Throat: hearing grossly normal, normal ENT inspection, normal pharynx Neck: non-tender, full range of motion, supple, normal inspection Respiratory: chest non-tender, lungs clear, normal breath sounds, no respiratory distress, no accessory muscle use Cardiovascular/Chest: normal peripheral pulses, no edema, no gallop, no JVD, no murmur, tachycardia Peripheral Pulses: radial,right: 2+, radial,left: 2+ Gastrointestinal/Abdominal: non tender, soft, no organomegaly Back Exam: normal inspection Extremity: normal range of motion, non-tender, normal inspection, no pedal edema, no calf tenderness, normal capillary refill 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 Initial heart rate 190s with severe hypertension 190/120s. -Peripheral IV was placed upon ED arrival and patient was begun on 1 L normal saline bolus. She was given initially adenosine 6 mg IV push without improvement, adenosine 12 mg IV push without improvement. Then she was given diltiazem 20 mg slow IV push which improved her heart rate to 150s and blood pressure to 160/120s. She was then given metoprolol 5 mg slow IV push without much improvement. She was then given diltiazem 10 mg slow IV push and finally had cardioversion to normal sinus rhythm, heart rate 90s. Blood pressure improved to 130s/90s. -Chest as the patient was successfully cardioverting I was able to reach on-call hotbed lever operator Dr. Toure at [facility] for emergent telephone consultation. He advises that the patient may be monitored in the ED and if she again returns to refractory SVT rhythm to consider synchronized electrical cardioversion. Otherwise if she remains stable in the ED without issues, she may be discharged home and directed to call Dr. Chapman's clinic on Saturday. -Full cardiac lab panel has been drawn. Patient was noted to have fever of 101.2 Fahrenheit shortly after the adenosine. I suspect that the fever may be secondary to the medication. We will check a rapid Covid and flu and strep as well as blood work and urinalysis. 08/25/20 21:10 -Patient has remained stable with ED observation. No further symptoms of palpitations or chest tightness. No recurrence of SVTs. She has remained in normal sinus rhythm with stable vital signs. Blood pressure remains slightly elevated but much improved from initial presentation. Patient reports she is feeling markedly better and eager to go home. -Labs reveal rapid strep test is positive. Otherwise largely unremarkable. Rapid Covid and flu testing are negative. -For strep pharyngitis, will treat with Z-Mike x5 days as she is allergic to PCN, first dose here. Will discharge home in good condition, strict ED return warnings discussed. Per Dr. Toure's advice, patient will need to call Dr. Chapman's clinic on Saturday to schedule close outpatient follow-up. Ike Weaver MD Billing #[id number] 08/25/20 18:42 IV Care:Saline Lock per Protoc QSHIFT Telemetry .ONCE Sodium Chloride 0.9% (Flush) [Saline Flush Syringe] 10 ml IV PRN PRN Pulse Oximetry Assessment DAILY 08/25/20 18:45 EKG STAT 08/26/20 09:00 Pulse Ox Daily Laboratory Results - last 24 hr 08/25/20 08/25/20 08/25/20 19:00 19:00 19:00 WBC 9.3 RBC 4.80 Hgb 14.9 Hct 43.7 MCV 91.1 MCH 31.0 MCHC 34.1 RDW 14.1 Plt Count 368 MPV 8.2 Absolute Neuts (auto) 4.90 Absolute Lymphs (auto) 3.20 Absolute Monos (auto) 0.80 Absolute Eos (auto) 0.20 Absolute Basos (auto) 0.20 H Neutrophils % 52.8 Lymphocytes % 34.7 Monocytes % 8.2 Eosinophils % 1.6 Basophils % 2.7 H PT 9.1 INR < 1.00 PTT (SP) 25.8 Sodium Potassium Chloride Carbon Dioxide Anion Gap BUN Creatinine BUN/Creatinine Ratio Random Glucose Serum Osmolality Lactic Acid Calcium Magnesium Total Bilirubin AST ALT Alkaline Phosphatase Troponin I B-Natriuretic Peptide 64.0 Serum Total Protein Albumin Globulin Albumin/Globulin Ratio TSH Urine Color Urine Appearance Urine pH Ur Specific [place] Urine Protein Urine Glucose (UA) Urine Ketones Urine Blood Urine Nitrite Urine Bilirubin Urine Urobilinogen Ur Leukocyte Esterase Urine RBC Urine WBC Ur Epithelial Cells Urine Bacteria Group A Strep Rapid 08/25/20 08/25/20 08/25/20 19:00 19:00 19:00 WBC RBC Hgb Hct MCV MCH MCHC RDW Plt Count MPV Absolute Neuts (auto) Absolute Lymphs (auto) Absolute Monos (auto) Absolute Eos (auto) Absolute Basos (auto) Neutrophils % Lymphocytes % Monocytes % Eosinophils % Basophils % PT INR PTT (SP) Sodium 140 Potassium 3.6 Chloride 105 Carbon Dioxide 23 Anion Gap 15.6 BUN 13 Creatinine 0.73 BUN/Creatinine Ratio 17.8 Random Glucose 108 H Serum Osmolality 280.0 Lactic Acid 1.2 Calcium 9.0 Magnesium 2.1 Total Bilirubin 0.3 AST 22 ALT 42 Alkaline Phosphatase 92 Troponin I < 0.02 B-Natriuretic Peptide Serum Total Protein 8.3 H Albumin 4.7 Globulin 3.6 H Albumin/Globulin Ratio 1.3 TSH 2.27 Urine Color Urine Appearance Urine pH Ur Specific [place] Urine Protein Urine Glucose (UA) Urine Ketones Urine Blood Urine Nitrite Urine Bilirubin Urine Urobilinogen Ur Leukocyte Esterase Urine RBC Urine WBC Ur Epithelial Cells Urine Bacteria Group A Strep Rapid 08/25/20 08/25/20 19:28 19:28 WBC RBC Hgb Hct MCV MCH MCHC RDW Plt Count MPV Absolute Neuts (auto) Absolute Lymphs (auto) Absolute Monos (auto) Absolute Eos (auto) Absolute Basos (auto) Neutrophils % Lymphocytes % Monocytes % Eosinophils % Basophils % PT INR PTT (SP) Sodium Potassium Chloride Carbon Dioxide Anion Gap BUN Creatinine BUN/Creatinine Ratio Random Glucose Serum Osmolality Lactic Acid Calcium Magnesium Total Bilirubin AST ALT Alkaline Phosphatase Troponin I B-Natriuretic Peptide Serum Total Protein Albumin Globulin Albumin/Globulin Ratio TSH Urine Color Yellow Urine Appearance Clear Urine pH 6.0 Ur Specific [place] 1.015 Urine Protein Negative Urine Glucose (UA) Negative Urine Ketones Negative Urine Blood Trace-lysed H Urine Nitrite Negative Urine Bilirubin Negative Urine Urobilinogen 0.2 Ur Leukocyte Esterase Negative Urine RBC 0-1 Urine WBC 1-3 Ur Epithelial Cells 1-3 Urine Bacteria 0 Group A Strep Rapid Positive H - EKG/XRAY/CT EKG: Atrial - Initial EKG upon ED arrival revealed SVTs, heart rate 190, no ST elevations or Q waves noted, axis normal, intervals normal, appears similar to 04/26/2020 ED EKG when patient also presented in SVTs at that time XRAY: chest - No acute processes per my read - Additional EKG/XRAY/Consults EKG #2: Changed from - Repeat EKG at 1916 following ED medications revealed resolved SVTs. Patient in normal sinus rhythm, heart rate 95, no ST elevations or Q waves noted, axis and intervals normal. Departure - Departure Clinical Impression: SVT (supraventricular tachycardia), Strep pharyngitis Time of Disposition: 20:53 Disposition: Discharge to Home or Self Care Condition: Good Instructions: Supraventricular Tachycardia (SVT) Diet: resume usual diet Activity: increase activity as tolerated Referrals: Gino Walker MD [Primary Care Provider] - 1-2 Weeks Prescriptions: Azithromycin Tab [Zithromax Tab] 250 mg PO DAILY 4 Days #4 tab Home Medications: Ambulatory Orders Pantoprazole Sodium 40 mg PO DAILY 11/16/19 Sucralfate Tab [Carafate Tab] 1 gm PO QID #120 tab 03/17/20 Acetaminophen W/ Codeine [Tylenol W/ CODEINE #3] 1 ea PO Q6HR #20 ea 07/06/20 Cephalexin Monohydrate [Keflex] 500 mg PO BID #14 cap 07/06/20 DULoxetine HCL [Cymbalta] 30 mg PO DAILY 07/06/20 Dofetilide 250 mcg PO BID 07/06/20 Metoprolol Tartrate 25 mg PO BID 07/06/20 Azithromycin Tab [Zithromax Tab] 250 mg PO DAILY 4 Days #4 tab 08/25/20 Additional Instructions: Remain well-hydrated and gradually advance her diet and activity level as tolerated. Avoid food substances which may increase your risk of SVT such as caffeine, alcohol, illicit substances, etc. Return to the ED if you develop return of symptoms or other concerning symptoms such as chest pain, shortness of breath, etc. As instructed by cardiology, you will need to call Dr. Chapman's clinic on Saturday to schedule close outpatient follow-up. Critical Care Note - Critical Care Note Total Time (mins): 45 Comments: Critical Care Time: Upon my evaluation, this patient had a high probability of life-threatening deterioration due to supraventricular tachycardia, which required my direct attention, intervention, and management. I have provided 45 minutes of critical care time exclusive of separately billable procedures. My time included: direct patient care, review of labs and radiology, obtaining history from and counseling the patient and the family, discussion with consultants and other medical personnel, documentation, and monitoring for potential decompensation.
[2020-08-25] MEDS ORDERED: METOPROLOL TARTRATE INJ 5 MG/5 ML VIAL IV ONE (19:01)
--- NOTE | 2020-08-25 19:25 | RAD ---
EXAM DESCRIPTION: Chest,1 View CLINICAL HISTORY:49 years Female, palpitations Comparison: April 26, 2020 FINDINGS: No focal lung consolidation. No pleural effusion. No pneumothorax. Cardiac and mediastinal silhouette is unremarkable. No acute osseous abnormality. Soft tissues are unremarkable. IMPRESSION: No acute findings. No focal lung consolidation. Electronically signed by: Villa Emery MD 08/25/2020 7:24 PM NAVAL ARCHITECT SPECIALIST
[2020-08-25] MEDS ORDERED: AZITHROMYCIN 250 MG TAB PO ONE ×2 (20:31→20:57)
[2020-08-25 21:13] VITALS: BP 143/89; TEMP 98; O2SAT 96
== END 2020-08-25 21:05 | disposition home or self-care (01) ==
LOC: ER 18:36
DX: I47.1 Supraventricular tachycardia (principal); J02.0 Streptococcal pharyngitis; R03.0 Elevated blood-pressure reading, without diagnosis of hypertension; K21.9 Gastro-esophageal reflux disease without esophagitis; Z20.828 Contact with and (suspected) exposure to other viral communicable diseases; Z87.891 Personal history of nicotine dependence; Z79.899 Other long term (current) drug therapy; Z88.5 Allergy status to narcotic agent; Z88.0 Allergy status to penicillin
CPT/HCPCS: 71045; 80053; 81001; 83605; 83735; 83880; 84443; 84484; 85025; 85610; 85730; 87502; 87635; 87880; 93005; J0153; J7030; Q0144